=== PATIENT | female | born 1970 | race Caucasian/White ===

== ENCOUNTER 2023-06-04 15:58 | Outpatient (CLI) | payer OTHER, SELFPAY ==
--- NOTE | 2023-06-04 16:00 | CRLHL7_ITS ---
For Patients: As a result of the 21st Century Cures Act, medical imaging exams and procedure reports are released immediately into your electronic medical record. You may view this report before your referring provider. If you have questions, please contact your health care provider. INDICATION: LT facial spasm TECHNIQUE: CT of the temporal bones without contrast. Coronal and axial small field of view reconstructions of both temporal bones are included. COMPARISON: No prior studies are available for comparison at this institution. FINDINGS: RIGHT temporal bone: The external auditory canal is widely patent. No EAC stenosis or obstruction. The tympanic membranes are not thickened. The right middle ear is clear. No material is present within the sinus tympani. The ossicles are normal in appearance and location with no erosions or dislocation. The otic capsule is normal in appearance. No sclerosis within the labyrinthine canal. No fistula between the labyrinth and the middle ear. The vestibule and semicircular canals are normal in morphology with no evidence of semicircular canal dehiscence. Normal cochlear morphology with appropriate number of turns. Vestibular aqueduct is normal in size. Facial nerve canal is intact and normal in course/caliber. Petrous apex is normal. A few of the lateral mastoid air cells are opacified. The carotid canal and jugular foramen are normal. LEFT temporal bone: The external auditory canal is widely patent. No EAC stenosis or obstruction. The tympanic membranes are not thickened. The left middle ear is clear. No material is present within the sinus tympani. The ossicles are normal in appearance and location with no erosions or dislocation. The otic capsule is normal in appearance. No sclerosis within the labyrinthine canal. No fistula between the labyrinth and the middle ear. The vestibule and semicircular canals are normal in morphology with no evidence of semicircular canal dehiscence. Normal cochlear morphology with appropriate number of turns. Vestibular aqueduct is normal in size. Facial nerve canal is intact and normal in course/caliber. Petrous apex is normal. Mastoid air cells are clear. The carotid canal and jugular foramen are normal. OTHER: No fracture or significant degenerative change, lytic or blastic process is demonstrated in the skull base or temporomandibular joints. The imaged intracranial structures are normal in appearance. Orbits are normal. Imaged soft tissue structures are normal in appearance. Small mucous retention cysts in both maxillary sinuses measuring 1 cm or less. IMPRESSION: Unremarkable CT of the temporal bones. Minimal right mastoid effusion. Minimal bilateral maxillary sinus disease. Please note that all CT scans at this facility use dose modulation, iterative reconstruction, and/or weight-based dosing when appropriate to reduce radiation dose to as low as reasonably achievable. Dictated by Shan De Guzman MD @ 06/05/2023 12:03:19 PM (Electronically Signed)
== END 2023-06-04 15:59 | disposition home or self-care (01) ==
PROVIDERS: Visit Provider Otolaryngology
DX: G51.39 Clonic hemifacial spasm, unspecified (principal); J32.0 Chronic maxillary sinusitis
CPT/HCPCS: 70480

== ENCOUNTER 2024-05-20 11:28 | Outpatient (CLI) | payer OTHER, SELFPAY ==
--- OUTSIDE RECORDS SUMMARY | 2024-05-20 11:32 | XMS_ITS | Encounter Summary ---
Author Organization [facility] Address [address] [place] [id number] Care Team Providers Care Cook Fishing Vessel Name Role Phone Elsewhere, Pcp Primary Care Provider Unavailabl e Reason for Visit * Appointment Request (Routine) - Closed Specialty Diagnoses / Procedures Referred By Nicola shi Referred To Contact Neurology Referral ID Status Reason Start Date Expiration Date Visits Re quested Visits Authorized [id number] Closed 04/11/2024 04/11/2025 1 1 Encounter Details Date Type Department Care Team (Late st Contact Info) Description 05/17/2024 12:30 PM CDT Office Visit Department of Neurology in [place], [place] [address] [place] [address] Sania Cabrera M.B.B.S. [address] [place] [phone] Clonic Hemifacial Spasm Left (Primary Dx) Social History Tobacco Use Types Packs/Day Years Used Date Smoking Tobacco: Never Passive Smoke Exposure: Never Smokeless Tobacco: Never Tobacco Cessation:Counseling Given: Not Answered [facility] Utilities Answer Date Recorded In the past 12 months has [facility] [employer], gas, oil, or water [employer] threatened to shut off services in your home? No 05/16/2024 Humiliation, Afraid, Rape, and Kick questionnair e Answer Date Recorded Within the last year, have y ou been afraid of your partner or ex-partner? No 11/15/2021 Within the last year, have y ou been humiliated or emotionally abused in other ways by your partner or ex-partner? No Within the last year, have y ou been kicked, hit, slapped, or otherwise physically hurt by your partner or ex-partner? No 11/15/2021 Within the last year, have y ou been raped or forced to have any kind of sexual activity by your partner or ex-partner? No 11/15/2021 Social Connection and Isolat ion Panel [NHANES] Answer Date Recorded In a typical week, how many times do you talk on the phone with family, friends, or neighbors? More than three times a week 11/15/2021 How often do you get togethe r with friends or relatives? Patient declined 11/15/2021 How often do you attend chur or baptism services? 1 to 4 times per year 11/15/2021 Do you belong to any clubs o r organizations such as mormon groups, unions, fraReflex or athletic groups, or school groups? Yes 11/15/2021 How often do you attend meet ings of the clubs or organizations you belong to? More than 4 times per year 11/15/2021 Are you , , di vorced, , never , or living with a partner? 11/15/2021 AUDIT-C Answer Date Recorded Q1: How often do you have a drink containing alc ohol? Monthly or less 11/15/2021 Q2: How many drinks containi ng alcohol do you have on a typical day when you are drinking? 1 or 2 11/15/2021 Q3: How often do you have si x or more drinks on one occasion? Never 11/15/2021 Overall Financial Resource Strain (CARDIA) Answe r Date Recorded How hard is it for you to pa y for the very basics like food, housing, medical care, and heating? Not hard at all 11/15/2021 [facility] - Occupational Stress Questionnaire Answer Date Recorded Do you feel stress - tense, restless, nervous, or anxious, or unable to sleep at night because your mind is troubled all the time - these days? To some extent 11/15/2021 Exercise Vital Sign Answer Date Recorde d On average, how many days pe r week do you engage in moderate to strenuous exercise (like a brisk walk)? 5 days 05/16/2024 On average, how many minutes do you engage in exercise at this level? 30 min 05/16/2024 Hunger Vital Sign Answer Date Recorded Within the past 12 months, y ou worried that your food would run out before you got the money to buy more. Never true 05/16/20 24 Within the past 12 months, t he food you bought just didn't last and you didn't have money to get more. Never true 05/16/2024 PRAPARE - Transportation Answer Date Re corded In the past 12 months, has l ack of transportation kept you from medical appointments or from getting medications? No 04/19 In the past 12 months, has l ack of transportation kept you from meetings, work, or from getting things needed for daily living? No 05/16/2024 Nutrition Answer Date Recorded On average, how many serving s of fruits and vegetables do you eat per day (serving size is equal to 1 cup or approximately the size of a tennis ball)? 3-5 05/16/2024 Dental Answer Date Recorded Dental: Regular Dentist Yes 11/15/19 Employment Answer Date Recorded Employment status Employed and actively working without restrictions 05/16/2024 Housing Stability Answer Date Recorded What is your living situation today? I have a [facility] place to live 05/16/2024 Education Answer Date Recorded What is the highest level of school you have completed or the highest degree you have received? 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 - 05/17/2024 12:30 PM CDT SUBJECTIVE CHIEF COMPLAINT/REASON FOR VISIT Follow-up for hemifacial spasm HISTORY OF PRESENT ILLNESS Glensi Bach returns today for follow-up. Mrs. Bach is a very pleasant 53-year-old woman who presents today for a neurological evaluation for treatment refractory left clonic shamir facial spasm. I have previously evaluated [place]. She has left clonic shamir facial spasm. At our initial consultationthe symptoms were quite mild but over time they have progressed in severity to the point where theyinterrupt her sleep significantly, she gets frequent significant headaches from the muscle tightness, her vision and depth perception become impacted due to constant eye contraction, as a result she feels somewhat unsteady. She does have some clicking in her ear on that side. The symptoms do appearto consume her cognition and overall well-being due to the increasing symptom burden. She had a couple of rounds of botulinum toxin injections at [facility] in [place] but due to convenience has been doing them with a director [employer] locally. Last injection was done today, however since this does not kick in for 7-10 days, she is still at the trough of her dose. She gets no more than 30-40% improvement in the spasm with botulinum toxin. Recently she was prescribed hydroxyzine to help with sleep given that the spasm really interrupts her sleep. Also see my previous note evaluation of some transient symptoms she had, he will occasionally feel a weird sensation in her legs but there is really no persistent sensory motor abnormality. Of note no upper or lower limb deficits, bladder and bowel are normal, no dysphagia, no dysarthria,facial sensation is normal, voice and speech are normal. She has good hearing in the left ear but has had stable nonprogressive [id number] hearing loss in the right ear. OBJECTIVE PHYSICAL EXAMINATION I performed a complete neurological exam today. She does have typical left hemifacial spasm. This can appear periodic as is typical for the condition. There is some reactionary contraction of the right lower face that she does not notice, which is not a hemifacial spasm or a pathological movement rather a response to the left-sided contraction. This is not present at all times. Remaining cranial nerve, motor, sensory, cerebellar, gait evaluation was normal. Reflexes were within normal limits. ASSESSMENT / PLAN #1 Clonic left shamir facial spasm Mrs. 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 Unfortunately botulinum toxin therapy has failed provide her with optimal benefit and the spasm has progressed since I first saw her. It is significantly impacting her quality of life and causing several downstream impacts. She recently got a second opinion and was recommended a few medications. She certainly could trial those under the supervision of her primary care provider, however oral medications usually have minimal to no impact on hemifacial spasm and may be accompanied by systemic side effects. She is scheduled for an evaluation with Dr. Sue to discuss surgical interventions. Follow-up plan: I will not set up a scheduled follow-up. If a re-evaluation is needed, she can reach out. Total Time: 45 minutes PATIENT EDUCATION Ready to learn, no apparent learning barriers were identified; learning preferences include listening. Explained diagnosis and treatment plan; patient expressed understanding of the content. documented in this encounter Plan of Treatment Not on file documented as of this encounter Visit Diagnoses Diagnosis Clonic Hemifacial Spasm Left- Primary documented in this encounter Care Teams [employer]ishing [employer] Relationship Specialty Start Date End Date Elsewhere, Pcp PCP - General Internal Medicine 11/14/21 documented as of this encounter
--- OUTSIDE RECORDS SUMMARY | 2024-05-20 11:32 | XMS_ITS | Referral Summary ---
Author Organization [facility] Address [address] [place] [address] Care Team Providers Care Civil Engineering Professional Name Role Phone Elsewhere, Pcp Primary Care Provider Unavailabl e Source Comments Patient records contain information from all sites at [facility]. For routine questions regarding patient records, call [phone] during business hours, M-F 8:00 AM - 5:00 PM Central Time. Record requests for emergency care only can be directed to [phone] at any time.[facility] Encounters Date Type Department Care Team Description 05/17/2024 3:30 PM CDT Comprehensive Visit Department of Neurologic Surgery in [place], [place] [address] [place] [address] Roc Sue M.D. Clonic Hemifacial Spasm Left 05/17/2024 12:30 PM CDT Office Visit Department of Neurology in [place], [place] [address] [place] [address] Sania Cabrera M.B.BPastoraS. Clonic Hemifacial Spasm Left (Primary Dx) 05/10/2024 8:30 AM CDT Office Visit Department of Otorhinolaryngology in [place], [place] [address] [place] [address] Dexter Lyons P.A.-C., M.S. Loss Hearing Sensorineural Asymmetrical (Primary Dx) 05/02/2024 4:45 PM CDT Diagnostic Department of Otorhinolaryngology in [place], [place] [address] [place] [address] Boogie Plata Au.D. Sensorineural Hearing Loss Unilateral Right Ear With Unrestricted Hearing On The Contralateral Side (Primary Dx) from Last 3 Months Allergies Active Allergy Reactions Criticality Noted Date Comments Droperidol Other (see comments),Palpitations Medium tremors Pollen Extracts Itching 03/05/2015 Medications Medication Sig Dispensed Refills Start Date End Date Status multivitamin tablet Take 1 tablet by mouth daily. 03/05/2015 Active levothyroxine (SYNTHROID, LEVOTHROID) 50 mcg tablet Take 1 tablet by mouth daily. 06/20/2016 Active valACYclovir (VALTREX) 1000 mg tablet 07/16/2021 Active buPROPion XL (WELLBUTRIN XL) 300 mg 24 hr tablet Take 1 tablet by mouth daily. 07/29/2021 05/17/2024 Discontinued Hospital, Clinic, or Other Facility Administered Medication Ordered Dose Route Frequency Start Date End Date Status incobotulinumtoxinA injection 50 Units (XEOMIN)Indications:Clon ic Hemifacial Spasm Left 50 Units IM Every 12 weeks 08/14/2020 Active Active Problems Problem Noted Date Diagnosed Date Clonic Hemifacial Spasm Left 05/17/2024 Social History Tobacco Use Types Packs/Day Years Used Date Smoking Tobacco: Never Passive Smoke Exposure: Never Smokeless Tobacco: Never Tobacco Cessation:Counseling Given: Not Answered [facility] [employer] Answer Date Recorded In the past 12 months has [facility] [employer], gas, oil, or water [employer] threatened to shut off services in your [...] How often do you attend chur or confucianism services? 1 to 4 times per year 11/15/2021 Do you belong to any clubs o r organizations such as jewish groups, unions, fraternal or athletic groups, or school groups? Yes [...] and heating? Not hard at all 11/15/2021 [facility] Occupat ional Health - Occupational Stress [...] your living situation today? I have a [facility] place to live 05/16/2024 Education Answer Date Recorded What is the highest level of school you have completed or the highest degree you have received? 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 Gender Identity Female 08/08/2020 9:15 PM CDT Sexual Orientation Straight 08/08/2020 9: 15 PM CDT Last Filed Vital Signs Vital Sign Reading Time Taken Comments Blood Pressure 119/81 05/17/2024 12:19 PM CDT Pulse 91 05/17/2024 12:19 PM CDT Temperature - - Respiratory Rate - - Oxygen Saturation 100% 08/13/2020 7:50 AM CDT Inhaled Oxygen Concentration - - Weight 79.1 kg (174 lb 4.4 oz) 05/17/2024 12:19 PM CDT Height 164.9 cm (5' 4.92) 05/17/2024 12:19 PM C DT Body Mass Index 29.07 05/17/2024 12:19 PM CDT Plan of Treatment Not on file Procedures Procedure Name Priority Date/Time Associated Diagnosis Comments AUDIOLOGY EVALUATION 05/02/2024 12:00 AM CDT THYROID-STIMULATING HORMONE-SENSITIVE (S-TSH) Routine 09/25/2015 7:39 AM HEAVY FORGER GLUCOSE, FASTING, S/P Routine 03/05/2015 8:30 AM CDT from Last 3 Months or Most Recently Relevant to Health Maintenance Results * Audiology evaluation (05/02/2024 12:00 AM CDT) 05/02/2024 Boogie Garcia AUDIOLOGY SERVICES ORDERABLES * S-TSH (Thyroid-Stimulating Hormone - Sensitive) (09/25/2015 7:39 AM HEAVY FORGER) TSH, Sensitive 1.0 0.3 - 4.2 MIU/L [facility] 09/25/2015 7:39 AM HEAVY FORGER 09/25/2015 7:39 AM HEAVY FORGER Bernie Begum M.D. LAB BLOOD ADD-ON Performing Organization Address City/[facility]/ZIP Co de Phone Number [facility] [address] * Glucose, Fasting (03/05/2015 8:30 AM CDT) [facility] Int[facility] Glucose, P 87 70 - 100 MG/DL [facility] 03/05/2015 8:30 AM CDT 03/05/2015 8:30 AM CDT Bernie Begum M.D. LAB BLOOD NON ADD-ON [facility] [address] from Last 3 Months or Most Recently Relevant to Health Maintenance Care Teams Civil Engineering Professional Relationship Specialty Start Date End Date Elsewhere, Pcp PCP - General Internal Medicine 11/14/21
--- OUTSIDE RECORDS SUMMARY | 2024-05-20 11:32 | XMS_ITS | Encounter Summary ---
Author Organization [facility] Address [address] [place] [address] Care Team Providers Care Insurance Broker Name Role Phone Elsewhere, Pcp Primary Care Provider Unavailabl e Reason for Visit * Appointment Request (Routine) - Pending Review Specialty Diagnoses / Procedures Referred By Nicola shi Referred To Contact Otorhinolaryngology Referral ID Status Reason Start Date Expiration Date V isits Requested Visits Authorized [id number] Pending Review 04/28/2024 04/28/2025 1 1 Encounter Details Date Type Department Care Team (Latest Contact Info) Description 05/10/2024 8:30 AM CDT Office Visit Department of Otorhinolaryngology in [place], [place] [address] [place] [address] Dexter Lyons, P.A.-C., M.S. [address] [place] [address] Loss Hearing Sensorineural Asymmetrical (Primary Dx) Social History Tobacco Use Types Packs/Day Years Used Date Smoking Tobacco: Never Smokeless Tobacco: Never Humiliation, Afraid, Rape, and Kick questionnair e [...] How often do you attend chur or moravian services? 1 to 4 times per year 11/15/2021 Do you belong to any clubs o r organizations such as orthodox groups, unions, fraternal or athletic groups, or [...] and heating? Not hard at all 11/15/2021 [facility] - Occupational [...] to strenuous exercise (like a brisk walk)? 4 days 11/15/2021 On average, how many minutes do you engage in exercise at this level? 60 min 11/15/2021 Hunger Vital Sign Answer Date Recorded Within the past 12 months, y ou worried that your food would run out before you got the money to buy more. Never true 01/28/20 22 Within the past 12 months, t he food you bought just didn't last and you didn't have money to get more. Never true 11/15/2021 PRAPARE - Transportation Answer Date Re corded In the past 12 months, has l ack of transportation kept you from medical appointments or from getting medications? No 10/20 In the past 12 months, has l ack of transportation kept you from meetings, work, or from getting things needed for daily living? No 11/15/2021 Housing Stability Vital Sign Answer Arash e Recorded In the last 12 months, was t here a time when you were not able to pay the mortgage or rent on time? No 11/15/2021 In the last 12 months, how many places have you lived? 1 11/15/2021 In the last 12 months, was t here a time when you did not have a steady place to sleep or slept in a chcf (including now)? No 11/15/2021 Nutrition Answer Date Recorded Nutrition: EVOO Fat Source Yes 11/15 On average, how many serving s of fruits and vegetables do you eat per day (serving size is equal to 1 cup or approximately the size of a tennis ball)? 0-1 11/15/2021 Dental Answer Date Recorded Dental: Regular Dentist Yes 11/15/19 Employment Answer Date Recorded Employment status Employed and actively working without restrictions 11/15/2021 Education Answer Date Recorded What is the highest level of school you have completed or the highest degree you have received? Professional school degree (e.g., MD, DDS, DVM, RENETTA) 08/08/2020 Sex and Gender Information Value Date Recorded Sex Assigned at Female 11/15/2021 8:24 AM FISH BIN TENDER Gender Identity Female 08/08/2020 9:15 PM CDT Sexual Orientation Straight 08/08/2020 9: 15 PM CDT documented as of this encounter Progress Notes * Dexter Lyons, Baljinder.A.-C., M.S. - 05/10/2024 8:30 AM CDT SUBJECTIVE CHIEF COMPLAINT/REASON FOR VISIT: Return visit REFERRAL SOURCE No ref. provider found HISTORY OF PRESENT ILLNESS Glenis Bach is a very pleasant 53 y.o. female who returns for re-evaluation in ENT. The patient was most recently seen in 2021 regarding a history of right- sided sensorineural hearing loss. The patient was most recently seen on 12/09/2021 regarding history of right sensorineural hearing loss. We reviewed a previous MRI, which was negative for vestibular schwannoma. She presents today after an updated audiogram. Today, Ms. Bach returns to the ENT clinic reporting some possible worsening of her hearing. She has trouble localizing sound, especially in her large [place] home. In addition, she finds herself missing different things in conversation, especially when talking with her children. She has had a few events of self- limited, non-pulsatile tinnitus, but this has not present today. She denies ear pain and drainage. History is notable for very bothersome left-sided hemifacial spasm, in his contributes to a feelingof tension or fullness in the left face. She underwent workup with an outside ENT recently on the suspicion that she may have some underlying sinus disease, but this evaluation, including CT imaging of the sinuses was negative. An updated audiogram was completed last week, and revealed: Right: mild to moderate sensorineural hearing loss from 0.25-8 kHz. Left: normal hearing from 0.25-8 kHz Word recognition ability was assessed using recorded isophoneme stimuli and resulted in scores of 100% in each ear. Tympanometry revealed normal compliance and normal pressure bilaterally. Hearing is stable compared to her previous evaluation. REVIEW OF SYSTEMS Pertinent items are noted in History of Present Illness. All other Review of Systems were negative. CURRENT MEDICATIONS Reviewed and updated in the EMR. ALLERGIES/CONTRAINDICATIONS Reviewed and updated in the EMR. MEDICAL HISTORY Reviewed and updated in the EMR. SURGICAL HISTORY Reviewed and updated in the EMR. FAMILY HISTORY Reviewed and updated in the EMR. SOCIAL HISTORY Social History Tobacco Use Smoking status: Never Smokeless tobacco: Never Substance Use Topics Drug use: Never OBJECTIVE PHYSICAL EXAMINATION General: Awake, alert, and oriented times three. In no acute distress. Head: Normocephalic, atraumatic. Hair and scalp normal. Face: Symmetric. House-Brackmann 1/6 bilaterally. Sinuses nontender to palpation. Eyes: Pupils equal, round, and reactive to light bilaterally. Extraocular muscles are intact. No nystagmus is appreciated. The sclerae are without injection. Ears: Normal shaped pinna bilaterally. External auditory canals are clear. Tympanic membranes are intact with well-aerated middle ear spaces bilaterally; mild myringosclerosis noted bilaterally. Mastoid area is nontender, nonerythematous, and nonfluctuant bilaterally. Neurologic: Cranial Nerves 2 through 12 are grossly intact. Voice is strong and easily understandable, without dysphonia or vocal tremor. Pulmonary: Patient has nonlabored breathing. No audible stridor. Skin: [employer] and dry. Psychiatric: Appropriate mood and affect. ASSESSMENT / PLAN #1 Asymmetric Sensorineural Hearing Loss #2 Left Hemifacial Spasm PLAN: It was a pleasure to meet with Ms. Bach in the clinic today. She presents for ENT evaluation of hearing loss. An updated audiogram reveals stable, right worse than left, sensorineural hearing loss.We discussed the option of hearing aids, and she will consider this in the future, but is not currently see a need in her day-to-day life. She has had multiple MRI scans, primarily related to historyof left hemifacial spasm, which have been negative for retrocochlear pathology. Recommend repeat audiogram in three years, sooner if needed. Note, the patient is interested in pursuing surgery for the left hemifacial spasm. She reviewed this with a local neurosurgeon and colleague of Dr. Sue. I will reach out to Dr. Torres team to see whether or not she would be able to be seen or would need prerequisite testing/ consults. Questions were entertained to the best my ability. The patient will contact me with questions or concerns that arise in the future. The patient understands and agrees to the above care plan. documented in this encounter Plan of Treatment Not on file documented as of this encounter Visit Diagnoses Diagnosis Loss Hearing Sensorineural Asymmetrical- Primary documented in this encounter Care Teams Insurance Broker Relationship Specialty Start Date End Date Elsewhere, Pcp PCP - General Internal Medicine 11/14/21 documented as of this encounter
--- OUTSIDE RECORDS SUMMARY | 2024-05-20 11:32 | XMS_ITS | Encounter Summary ---
Author Organization [facility] Address [address] [place] [address] Care Team Providers Care Jeep Driver Name Role Phone Elsewhere, Pcp Primary Care Provider Unavailabl e Reason for Visit * Outpatient (Routine) - Closed Specialty Diagnoses / Procedures Referred By Nicola shi Referred To Contact Neurological Surgery Diagnoses Clonic Hemifacial Spasm Left Sania Cabrera M.B.B.S. [address] [place] [phone] [facility] Referral ID Status Reason Start Date Expiration Date Visits Re quested Visits Authorized [id number] Closed 04/11/2024 10/11/2025 1 1 Encounter Details Date Type Department Care Team (Latest Contact Info) Description 05/17/2024 3:30 PM CDT Comprehensive Visit Department of Neurologic Surgery in [place], [place] [address] [place] [phone] Roc Sue M.D. [address] [place] [phone] Clonic Hemifacial Spasm Left Social History Tobacco Use Types Packs/Day Years Used Date Smoking Tobacco: Never Passive Smoke Exposure: Never Smokeless Tobacco: Never [facility] Utilities Answer Date Recorded In the past 12 months has e electric, gas, oil, or water company threatened to shut off services in your [...] declined 11/15/2021 How often do you attend [facility] or muslim services? 1 to 4 times per year 11/15/2021 Do you belong to any clubs o r organizations such as latter-day groups, unions, fraternal or athletic groups, or [...] and heating? Not hard at all 11/15/2021 [facility] - Occupational Stress [...] your living situation today? [facility] live 05/16/2024 Education Answer Date Recorded What is the highest level of school you have completed or the highest degree you have received? Professional school degree (e.g., MD, DDS, DVM, RENETTA) 08/08/2020 Sex and Gender Information Value Date Recorded Sex Assigned at Female 11/15/2021 8:24 AM ONLINE MARKETING SPECIALIST Gender Identity Female 08/08/2020 9:15 PM CDT Sexual Orientation Straight 08/08/2020 9: 15 PM CDT documented as of this encounter Consult Notes * Dexter Harry M.D., Ph.D. - 05/17/2024 3:30 PM CDT Images from the original note were not included. Referring Provider: Juan Hilario Reason for Consultation: Left hemifacial spasm History Ms. Bach is a very pleasant right-handed 53-year-old female who lives in [place], [place]. She works as an claim attorney. She presents with 4 years of progressive left hemifacial spasm. Her symptoms began in fall 2019 with occasional twitching of her left eyelid which progressed into the cheek and, as of late, involving her left mouth. She endorses clicking in her left ear that has been presentsince her symptoms began but the clicking has been progressively getting worse. She does have a recent audiogram which demonstrates normal hearing in the left ear with 100% word recognition. She getsBotox injections for the left hemifacial spasm which she estimates getting 30-40% improvement from. She has not tried medication for the symptoms but has tried physical therapy and massage. The symptoms significantly affect the quality of her life. She notes difficulty falling asleep and staying asleep due to the intensity of the facial spasms and she avoids professional and social settings that may exacerbate her symptoms.Ms. Bach is overall quite healthy and just takes thyroid replacement. Her surgical history includes 3 sections and tonsillectomy as an adult without any major complications. She is not on blood thinning agents. Exam The patient is neurologically intact with frequent spasms throughout our interaction in the left face and which are exacerbated by facial activation. Diagnostics Assessment/Plan It was a pleasure meeting Ms. Bach for evaluation of left hemifacial spasm. 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 We discussed a 90+% chance of finding an offending vessel at the nerve root entry zone ofthe 7th nerve at surgery and a 75+% chance of long-term symptom relief if we do find such a vessel and decompress the nerve. We further discussed the 10% risk of permanent hearing impairment, 1-2% risk of permanent facial weakness, 1-2% risk of dysphonia/dysphagia/hoarseness, and 1% risk of stroke or hemorrhage. Overall our recommendation is to proceed with microvascular decompression through a re trosigmoid craniotomy. She will contact us to let us know how she would like to proceed once she's had a chance to think further about things. Associated attestation - Roc Sue M.D. - 05/17/2024 5:39 PM CDT Reviewed and agree with the documentation, findings, impression and plan as well outlined in the note of Dr. Harry. Briefly, Ms. Bach is a very pleasant 53-year-old right-handed claim attorney [place] intractable left hemifacial spasm. Her hemifacial spasm began in the Fall of 2019 involving the left orbicularis oculi. It has progressively spread to involve the left side of the face. She has primarily treated this with Botox. She never has hemifacial spasm of the right side of the face. She has no history of rash or vesicles on the face. She does hear a ???clicking?? noise in the left ear which has gotten progressively louder but she feels that she hears equally well out of both ears. Interestingly, it is particularly intense when she is trying to fall asleep at night. She denies a history of hypertension. Although she just received Botox this morning she still has moderate hemifacial spasm on exam. At time she gets complete blepharospasm. She also has a tonic component to her hemifacial spasm. Impression/plan: I discussed with Ms. Bach that her exam is entirely consistent with left hemifacial spasm. We discussed some of the pathophysiology. I reviewed with her in detail the goals, risks, benefits and alternatives of left retrosigmoid craniotomy and microvascular decompression of the left facial nerve. I discussed in overall 75% chance of long-term alleviation or near-complete resolution of left hemifacial spasm. I discussed a less than 10% risk of left-sided severe hearing loss and a 1-2% risk of bleeding, infection, stroke, permanent facial weakness, dysphagia, dysphonia, diplopia, etcetera. I reviewed the convalescence, follow-up in restrictions after such an operation. The patient expresses good understanding of our detailed discussion. Her questions were answered. She has our card. She isgoing to take all this under advisement and will contact us if she would like to proceed with retrosigmoid craniotomy and microvascular decompression of the left facial nerve for intractable left shamir facial spasm. documented in this encounter Plan of Treatment Not on file documented as of this encounter Visit Diagnoses Diagnosis Clonic Hemifacial Spasm Left documented in this encounter Care Teams Jeep Driver Relationship Specialty Start Date End Date Elsewhere, Pcp PCP - General Internal Medicine 11/14/21 documented as of this encounter
--- OUTSIDE RECORDS SUMMARY | 2024-05-20 11:32 | XMS_ITS ---
Author Organization [facility] Address [address] [place] [address] Care Team Providers Care Artificial Leather Calender Operator Name Role Phone Unavailable Unavailable Unavailable Surgery Details Not on file Complications Check Surgery Details section. Procedure Estimated Blood Loss Check Surgery Details section. Procedure Findings Check Surgery Details section. Procedure Specimens Taken Check Surgery Details section.
--- OUTSIDE RECORDS SUMMARY | 2024-05-20 11:32 | XMS_ITS | Clinical Summary ---
Author Organization [email or web address] Address [address] [place] [address] Care Team Providers Care Scrum Product Owner Name Role Phone Tatiana Gonzalez MD Primary Care Provider + [phone] Source Comments You are receiving this document as you are listed as the primary care provider,follow-up provider, or the patient has been referred to you for consultation.This is in compliance with the Medicare andMedicaid EHR Incentive Program,which states Providers who transition their patient to another setting of careor provider of care or refers their patient to another provider of care shouldprovide summary care record for each transition of care or referral. [employer] 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 Screened 11/2010 and TSH 1.9 Depressive disorder 07/20/2010 Overview: Depression NOS Urticaria 06/11/2010 Overview: Urticaria NOS Benign neoplasm of skin 07/24/2004 Overview: LW Modifier: s/p excision ANW 2003 left calf LW Onset: ; Dysplastic Nevus Immunizations Name Administration Dates Next Due Flu Vac Preserv Free (3+yrs) 07/20/2010 H1n1 Miv San[employer]i 3+ Yr (Injected) 08/31/2009 HepA Adult (19+ yrs) 11/25/2000 Td 08/24/2005,11/18/1994 Varicella 12/11/1997(Deferred: Immune by Maksim brown) Family History Medical History Relation Name Comments Heart Disease Father CABG High Blood Pressure Father High Cholesterol Father High Blood Pressure Mother Osteoporosis Mother High Cholesterol Brother Osteoporosis Maternal Grandmother Relation Name Status Comments Father Mother Brother Maternal Grandmother Social History Tobacco Use Types Packs/Day Years Used Date Smoking Tobacco: Never Smokeless Tobacco: Never Alcohol Use Standard Drinks/Week Comments Yes 0 (1 standard drink = 0.6 oz pure alcohol) Alcoholic Drinks/day: Amount:1-2 drinks; Freq:2-4/Month ; Sex and Gender Information Value Date Recorded Sex Assigned at Not on file Gender Identity Not on file Sexual Orientation Not on file Last Filed Vital Signs Vital Sign Reading Time Taken Comments Blood Pressure 115/64 12/23/2011 9:40 AM MANAGER PROJECT Pulse 69 12/23/2011 9:40 AM MANAGER PROJECT Temperature 36.7 ??C (98.1 ??F) 04/19/2010 2:28 PM CD T C: 36.7 C Respiratory Rate 16 06/11/2010 7:42 AM CDT Oxygen Saturation - - Inhaled Oxygen Concentration - - Weight 71.7 kg (158 lb) 03/26/2023 11:05 AM CDT Height 162.6 cm (5' 4) 03/26/2023 11:05 AM CDT Body Mass Index 27.12 03/26/2023 11:05 AM CDT Plan of Treatment Health Maintenance Due Date Last Done Comments Colon Cancer Screening Plan Due 1972 Hep C Screening (Preventive Services) 1972 HIV Screening (Preventive Services) 1988 Adult Preventive Visit 1990 HepB (1) 1991 HepA (2 of 2 - Risk 2-dose series) 05/25/2001 11/25/2000 Cervical Cancer Screening Due 01/04/2004 01/03/2004, 02/07/2003, 11/08/2001, Additional history exists Mammogram 12/11/2015 12/11/2014 Cholesterol 2017 12/23/2011, 02/2010, 11/25/2000 Zoster/Shingles (2 of 2) 10/07/2022 08/12/2022 COVID-19 Vaccine ( season) 2023 07/13/2022, 02/13/2022, 09/02/2021, Additional history exists Influenza (#1) 2024 07/13/2022, 06/19, 09/06/2019, Additional history exists DTaP/Tdap/Td (3 - Tdap) 10/03/2026 10/03/20 16, 03/26/2011, 08/24/2005, Additional history exists Hib Aged Out No longer eligi ble based on patient's age to complete this topic IPV (Polio) Aged Out No longer eligi ble based on patient's age to complete this topic MCV4 Aged Out No longer eligi ble based on patient's age to complete this topic Pneumococcal Aged Out No longer eligi ble based on patient's age to complete this topic Procedures Procedure Name Priority Date/Time Associated Diagnosis Comments MM MAMMOGRAM DIAG BILAT Routine 12/11/2014 10:42 AM MANAGER PROJECT LIPID PANEL & DIRECT LDL (IF NEEDED) Routine 12/23/2011 11:05 AM MANAGER PROJECT Other and unspecified hyperlipidemia (HRC) ANATOMICAL PATH LIQUID BASED Routine 01/03/2004 1:25 PM MANAGER PROJECT from Last 3 Months or Most Recently Relevant to Health Maintenance Results * Lipid Panel and Direct LDL(If Needed) (12/23/2011 11:05 AM MANAGER PROJECT) Cholesterol 173 0 - 200 mg/dL HP CONVERSION Triglycerides 48 0 - 149 mg/dL HP CONVERSION HDL Cholesterol 70 >39 mg/dL HP CONVERSION Cholesterol/HDL Ratio Screen 2.5 HP CONVERSION LDL Calculated 93 19 - 130 mg/dL HP CONVERSION Hours Fasting 12 HP CONVERSION 12/23/2011 11:0 5 AM MANAGER PROJECT 12/23/2011 11:05 AM MANAGER PROJECT Narrative HP CONVERSION - 12/23/2011 11:46 AM MANAGER PROJECT Performed at [facility], [address] [place] [address] Transcriptions 11/28/2016 7:59 PM CSTNotes Recorded by Yomaira Gaspar RN on 12/24/2011 at 3:52 PMWaiting for Antinuclear Antibody, rest ok to wait. Tatiana Gonzalez MD LAB_1 HP CONVERSION * Pap Smear (01/03/2004 1:25 PM MANAGER PROJECT) PAP Smear Liquid Based SEE TEXT No normal range HP CONVERSION Comment: Patient: GLENIS MART ? CERVICAL CYTOLOGY REPORT Pathology # ??[id number] ?Date Obtained: ? Date Received: CYTOLOGIC IMPRESSION: Negative for intraepithelial lesion or malignancy. ? ADDITIONAL DATA LMP: ?12-26-03 CLINICAL HIST ? HRT:ORTHO TRICYCLEN LIQUID BASED PAP CERVICAL SPECIMEN ADEQUACY: ?? Satisfactory. ENDOCERVICAL CELLS: ??Absent. Verified 01/10/04 by: ??MB ? (electronic signature) 01/03/2004 1:25 PM MANAGER PROJECT Zee Garay MD LAB_1 HP CONVERSION from Last 3 Months or Most Recently Relevant to Health Maintenance Care Teams Scrum Product Owner Relationship Specialty Start Date End Date Tatiana Gonzalez MD [address] [place], [place] [id number] PCP - General 01/19/11
--- OUTSIDE RECORDS SUMMARY | 2024-05-20 11:32 | XMS_ITS | Encounter Summary ---
Author Organization [facility] Address [address] [place] [address] Care Team Providers Care Adaptive Physical Education Specialist Name Role Phone Tatiana Gonzalez MD Primary Care Provider Encounter Details Date Type Department Care Team (Latest Contact Info) Description 03/01/1998 Orders Only Linda Jim MD [address] [address] Social History Tobacco Use Types Packs/Day Years Used Date Smoking Tobacco: Never Assessed Sex and Gender Information Value Date Recorded Sex Assigned at Not on file Gender Identity Not on file Sexual Orientation Not on file documented as of this encounter Plan of Treatment Not on file documented as of this encounter Visit Diagnoses Not on filedocumented in this encounter Care Teams Adaptive Physical Education Specialist Relationship Specialty Start Date End Date Tatiana Gonzalez MD [facility] [place] [address] PCP - General 01/19/11 documented as of this encounter
--- OUTSIDE RECORDS SUMMARY | 2024-05-20 11:32 | XMS_ITS | Referral Summary ---
Author Organization [facility] Address [address] [place] [address] Care Team Providers Care Relationship Specialist Name Role Phone Parul Muñoz MD Primary Care Provider Social History Tobacco Use Types Packs/Day Years Used Date Smoking Tobacco: Never Assessed Adolescent Education Answer Date Record ed Getting School Help Needed Not on file 07/10 Sex and Gender Information Value Date Recorded Sex Assigned at Not on file Gender Identity Not on file Sexual Orientation Not on file Plan of Treatment Not on file Care Teams Relationship Specialist Relationship Specialty Start Date End Date Parul Muñoz MD [address] [address] PCP - General cardiothoracic anesthesia technician 11/30/14
--- OUTSIDE RECORDS SUMMARY | 2024-05-20 11:32 | XMS_ITS | Encounter Summary ---
Author Organization [facility] Address [address] [place] [address] Care Team Providers Care Acid Plant Helper Name Role Phone Tatiana Gonzalez MD Primary Care Provider Encounter Details Date Type Department Care Team (Latest Contact Info) Description 02/23/1996 Orders Only Deborah Lu [facility] [address] [place] [address] Social History Tobacco Use Types Packs/Day Years Used Date Smoking Tobacco: Never Assessed Sex and Gender Information Value Date Recorded Sex Assigned at Not on file Gender Identity Not on file Sexual Orientation Not on file documented as of this encounter Plan of Treatment Not on file documented as of this encounter Visit Diagnoses Not on filedocumented in this encounter Care Teams Acid Plant Helper Relationship Specialty Start Date End Date Tatiana Gonzalez MD [address] [place] [address] PCP - General 01/19/11 documented as of this encounter
--- OUTSIDE RECORDS SUMMARY | 2024-05-20 11:32 | XMS_ITS | Clinical Summary ---
Author Organization [facility] Address [address] [place] [address] Care Team Providers Care Cpas Name Role Phone Elsewhere, Pcp Primary Care Provider Unavailabl e Source Comments Patient records contain information from all sites at [facility]. For routine questions regarding patient records, call [phone] during business hours, M-F 8:00 AM - 5:00 PM Central Time. 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 Clonic Hemifacial Spasm Left (Primary Dx) 05/10/2024 8:30 AM CDT Office Visit Department of Otorhinolaryngology in [place], [place] [address] [place] [address] Dexter Lyons P.A.-C., M.S. Loss Hearing Sensorineural Asymmetrical (Primary Dx) 05/02/2024 4:45 PM CDT Diagnostic Department of Otorhinolaryngology in [place], [place] [address] [place] [address] Boogie Plata Au.D. Sensorineural Hearing Loss Unilateral Right Ear With Unrestricted Hearing On The Contralateral Side (Primary Dx) from Last 3 Months Family History Medical History Relation Name Comments Hyperlipidemia Brother 1 Juan Gersaeid Hypertension Brother 1 Juan Bach starting in 40 s Sleep apnea Brother 1 Juan Gersaeid Sleep apnea Brother 2 Omar Gernon ADD Daughter 1 Roselia Yoder Asthma Daughter 1 Roselia Yoder ADD Daughter 2 Jose Yoder Coronary artery disease Father Zachary Bach qu adruple bypass at 74 Dementia Father Zachary Bach [facility] did autopsy b/c it presented as FTD; have report Hyperlipidemia Father Zachary Bach Hypertension Father Zachary Bach starting in 4 0s Melanoma Father Zachary Bach unknown date; removed and ok Prostate cancer Father Zachary Bach Skin cancer Father Zachary Bach unknown date; removed and ok Hyperlipidemia Mother Jeannie Bach Hypertension Mother Jeannie Bach starting in 40s Osteoporosis Mother Jeannie Bach Thyroid disease Mother Jeannie Bach Sleep apnea Paternal Grandfather Zachary Bach Stroke Paternal Grandfather Zachary Bach from it; around age 58 Breast cancer Paternal Grandmother Cara Bach pos t-menopause Sleep apnea Sister Bailey Bach Thyroid disease Sister Bailey Bach Asthma Son Chava Yoder Relation Name Status Comments Brother 1 Juan Gernon Brother 2 Omar Gernon Daughter 1 Roselia Yoder Daughter 2 Jose Yoder Father Zachary Bach Mother Jeannie Bach Paternal Grandfather Zachary Bach Paternal Grandmother Cara Bach Sister Bailey Bach Son Chava Yoder Social History Tobacco Use Types Packs/Day Years Used Date Smoking Tobacco: Never Passive Smoke Exposure: Never Smokeless Tobacco: Never Tobacco Cessation:Counseling Given: Not Answered [facility] Utilities Answer Date Recorded In the past 12 months has e [employer], gas, oil, or water company threatened to [...] declined 11/15/2021 How often do you attend [facility] or jewish services? 1 to 4 times per year 11/15/2021 Do you belong to any clubs o r organizations such as taoism groups, unions, fraternal or athletic groups, or [...] and heating? Not hard at all 11/15/2021 [facility] - Occupational Stress Questionnaire Answer Date Recorded [...] money to buy more. Never true 05/16/20 Within the past 12 months, t he [...] your living situation today? I have a [facility] place to live 05/16/2024 Education Answer Date Recorded What is the highest level of school you have completed or the highest degree you have received? Professional school degree (e.g., MD, DDS, DVM, RENETTA) 08/08/2020 Sex and Gender Information Value Date Recorded Sex Assigned at Female 11/15/2021 8:24 AM PROPOSAL REVIEW ANALYST Gender Identity Female 08/08/2020 9:15 PM CDT [...] 05/17/2024 12:19 PM CDT Plan of Treatment Health Maintenance Due Date Last Done Comments CT Colonography 1972 Cologuard 1972 FIT 1972 HIV Screening 1972 Hepatitis C Screening 1972 Hepatitis B Vaccines (1 of 3 - 19+ 3-dose series) 1991 Cervical Cancer Screening 01/17/20182014 (Performed elsewhere) Depression Screening (Annual PHQ-2) 10/19/2023 Influenza Vaccine (#1) 2024 , 07/13/2022, 06/28/2020, Additional history exists Fasting Glucose for Diabetes Screening 09/25/2024 09/25/2021, 03/13/2021, 11/22/2020, Additional history exists Thyroid Stimulating Hormone (TSH) test for thyroid function 11/19/2024 11/19/2023, 09/25/2021, 03/13/2021, Additional history exists Mammogram 11/20/2024 11/20/2023, 11/2023, 11/18/2022, Additional history exists Lipid (Cholesterol) Screening 11/22/2025 11/22/2020, 11/03/2018 DTaP,Tdap,and Td Vaccines (3 - Td or Tdap) 10/03/2026 10/03/2016, 03/26/2011, 08/24/2005 Colonoscopy 08/28/2032 08/28/2022 Colorectal Cancer Screening 08/28/2032 Zoster Vaccines Completed 07/15/2023, 08/12/2022 COVID-19 Vaccine Completed 07/21/2023, , 02/13/2022, Additional history exists Pneumococcal vaccine (0-64 years) Aged Out No longer eligible based on patient's age to complete this topic Procedures Procedure Name Priority Date/Time Associated Diagnosis Comments AUDIOLOGY EVALUATION 05/02/2024 12:00 AM CDT THYROID-STIMULATING HORMONE-SENSITIVE (S-TSH) Routine 09/25/2015 7:39 AM PROPOSAL REVIEW ANALYST GLUCOSE, FASTING, S/P Routine 03/05/2015 8:30 AM CDT from Last 3 Months or Most Recently Relevant to Health Maintenance Results * Audiology evaluation (05/02/2024 12:00 AM CDT) 05/02/2024 Boogie Garcia AUDIOLOGY SERVICES ORDERABLES * S-TSH (Thyroid-Stimulating Hormone - Sensitive) (09/25/2015 7:39 AM PROPOSAL REVIEW ANALYST) TSH, Sensitive 1.0 0.3 - 4.2 MIU/L [facility] 09/25/2015 7:39 AM PROPOSAL REVIEW ANALYST 09/25/2015 7:39 AM PROPOSAL REVIEW ANALYST Bernie Begum M.D. LAB BLOOD ADD-ON [facility] [address] [place] [address], [facility] * Glucose, Fasting (03/05/2015 8:30 AM CDT) Last Intake 14 HR [facility] Glucose, P 87 70 - 100 MG/DL [facility] 03/05/2015 8:30 AM CDT 03/05/2015 8:30 AM CDT Bernie Begum M.D. LAB BLOOD NON ADD-ON [facility] [address] [place] [address], [facility] from Last 3 Months or Most Recently Relevant to Health Maintenance Care Teams Cpas Relationship Specialty Start Date End Date Elsewhere, Pcp PCP - General Internal Medicine 11/14/21
--- OUTSIDE RECORDS SUMMARY | 2024-05-20 11:32 | XMS_ITS | Encounter Summary ---
Author Organization [facility] Address [address] [place] [address] Care Team Providers Care Environmental Compliance Specialist Name Role Phone Elsewhere, Pcp Primary Care Provider Unavailabl e Reason for Visit * Appointment Request (Routine) - Closed Specialty Diagnoses / Procedures Referred By Nicola shi Referred To Contact Otorhinolaryngology Diagnoses Hearing Exam Referral ID Status Reason Start Date Expiration Date Visits Re quested Visits Authorized [id number] Closed 04/26/2024 04/26/2025 1 1 Encounter Details Date Type Department Care Team (Latest Contact Info) Description 05/02/2024 4:45 PM CDT Diagnostic Department of Otorhinolaryngology in [place], [place] [address] [place] [address] Boogie Plata Au.D. [address] [place] [address] Sensorineural Hearing Loss Unilateral Right Ear With Unrestricted Hearing On The Contralateral Side (Primary Dx) Social History Tobacco Use Types [...] 11/15/2021 How often do you attend chur ch or oriental orthodox services? 1 to 4 times per year 11/15/2021 Do you belong to any clubs o r organizations such as jew groups, unions, fraternal or athletic groups, or [...] and heating? Not hard at all 11/15/2021 [facility] - Occupational Stress [...] the money to buy more. Never true 11/15/19 22 Within the past 12 months, t [...] place to sleep or slept in a residential (including now)? No 11/15/2021 Nutrition Answer Date [...] Sex Assigned at Female 11/15/2021 8:24 AM FOREST AIDE Gender Identity Female 08/08/2020 9:15 PM CDT Sexual Orientation Straight 08/08/2020 9: 15 PM CDT documented as of this encounter Procedure Notes * Boogie Plata Au.D. - 05/02/2024 4:59 PM CDT SUBJECTIVE CHIEF COMPLAINT / REASON FOR VISIT ?? Asymmetric hearing loss, right greater than left. ?? Left hemifacial spasms HISTORY OF PRESENT COMPLAINT Mrs. Glenis Bach is a 53 year old patient with a history of right greater than left sensorineural hearing loss as well as progressively worsening left facial spasms for which she is considering surgical intervention. She feels the hearing in her right ear has probably worsened since her last visit in 2021. She also notes a constant pulsatile sensation in her left ear since around 2019. This is significantly worse when she is lying down. Family history is significant for hearing concerns on her mother side, including her mother, sister, and several aunts, uncles, and cousins who developed hearing loss at an early age. She denies any familial or personal ear surgery. OBJECTIVE See Audiological Evaluation Form. ASSESSMENT/PLAN ?? Right: mild to moderate sensorineural hearing loss from 0.25-8 kHz. ?? Left: normal hearing from 0.25-8 kHz ?? Word recognition ability was assessed using recorded isophoneme stimuli and resulted in scores of 100% in each ear. ?? Tympanometry revealed normal compliance and normal pressure bilaterally. ?? Hearing is stable compared to her previous evaluation. CARE PLAN ?? Test results were explained to the patient. ?? She is not interested in a right hearing aid at this time but was made aware this may be an option for her. ?? Re-evaluate hearing after medical management, or in 2-3 years, sooner if concerns arise. documented in this encounter Plan of Treatment Not on file documented as of this encounter Procedures Procedure Name Priority Date/Time Associated Diagnosis Comments AUDIOLOGY EVALUATION 05/02/2024 12:00 AM CDT documented in this encounter Results * Audiology evaluation (05/02/2024 12:00 AM CDT) 05/02/2024 Boogie Garcia AUDIOLOGY SERVICES ORDERABLES documented in this encounter Visit Diagnoses Diagnosis Sensorineural Hearing Loss Unilateral Right Ear With Unrestricted Hearing On The Contralateral Side- Primary documented in this encounter Care Teams Environmental Compliance Specialist Relationship Specialty Start Date End Date Elsewhere, Pcp PCP - General Internal Medicine 11/14/21 documented as of this encounter
--- OUTSIDE RECORDS SUMMARY | 2024-05-20 11:32 | XMS_ITS | Clinical Summary ---
Author Organization [place] Address [address] [place] [address] Care Team Providers Care Shoe Repairer Helper Name Role Phone Parul Muñoz MD Primary [...] of Treatment Not on file Care Teams Shoe Repairer Helper Relationship Specialty Start Date End Date Parul Muñoz MD [address] [address] PCP - General field superintendent 11/30/14
--- OUTSIDE RECORDS SUMMARY | 2024-05-20 11:33 | XMS_ITS | Clinical Summary ---
Author Organization [facility] Address [place], [place] [address] Care Team Providers Care Emt I/99 Name Role Phone Luis FKarmen van Soumya Primary Care Provider [phone] Allergies Active Allergy Reactions Criticality Noted Date Comments Droperidol Tremors,Tachycardia Medium 03/24/2011 Pollen Extracts Itching 03/05/2015 Propranolol Other - Describe In Comment Field 0 03/26/2023 dystonia Medications Medication Sig Dispensed Refills Start Date End Date Status multivitamin (MVI) tablet Take 1 tablet by mouth once daily. 0 4 Active valACYclovir (VALTREX) 1 gram tabletIndications: Recurrent cold sores Take 1 tablet by mouth 2 times daily. As needed for cold sore. 30 tablet 3 9 Active incobotulinumtoxin A (XEOMIN) 50 unit IM injection Inject 50 units intramuscular every 12 weeks. 0 Active miscellaneous medical supply miscIndications:Barksdale shimoto's disease Levothyroxine t3 17/t4 68once daily 90 Each 2 Active hydrOXYzine HCL (ATARAX) 25 mg tablet 4 Active levothyroxine (SYNTHROID) 75 mcg tabletIndications: Carl's disease Take 1 Tablet (75 mcg) by mouth before breakfast. 4 Active dextroamphetamine- amphetamine (ADDERALL) 5 mg tabletIndications: Attention deficit hyperactivity disorder (ADHD), combined type TAKE 2 TABS (10MG) IN THE MORNING AND 1 TAB (5MG) AT 12:00 NOON 90 Tablet 4 Active dextroamphetamine- amphetamine (ADDERALL) 5 mg tabletIndications: Attention deficit hyperactivity disorder (ADHD), combined type TAKE 2 TABS (10MG) IN THE MORNING AND 1 TAB (5MG) AT 12:00 NOON 90 Tablet 4 05/10/20 24 Discontinued Active Problems Problem Noted Date Diagnosed Date Hemifacial spasm of left side of face 11/22/2020 Performance anxiety 11/03/2018 Recurrent cold sores 11/03/2018 ADD (attention deficit disorder) 08/27/2016 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 Vitamin D deficiency 03/14/2014 Reflux 12/28/2013 Overview: EGD 01/2014 normal Resolved Problems Problem Noted Date Diagnosed Date Resolved Date section 03/25/2011 12/14/2015 History of section, low transverse 05/14/2009 12/14/2015 Encounters Date Type Department Care Team Description 05/11/2024 11:20 AM CDT Telemedicine [facility] [address] [place] [address] Aung Alcantar MD Telehealth 05/10/2024 Refill [facility] [address] [place] [address] Karmen Stiles DO Refill Request (Dextroamphetamine-am phetamine) from Last 3 Months Immunizations Name Administration Dates Next Due AMB Influenza, IIV4 PF (=>6 mos Flulaval,Fluzone Fluarix)(Flu Clinic Only) 09/22/2014 COVID-19 Vaccine Spikevax (M oderna 50mcg/0.5mL) 12YO+ [id number] Formula PF 07/21/2023 COVID-19 vaccine (Moderna 100mcg/0.5mL) PF, MDV 09/02/2021,02/12/2021,01/15/2021 Hepatitis A (Adult) 11/25/2000 Hepatitis A (Peds),Unspecified 11/25/2000 Influenza A (H1N1), Inactivated 08/31/2009 Influenza Virus, Unspecified 07/20/2010 Influenza, IIV3 (Age >=3 years) 07/27/20 12,06/19/2010,09/02/2007,2004 Influenza, IIV4 06/28/2020, 9,08/02/2018,2016,09/22/2014 Influenza,CCIIV4 PRESERV FREE 07/15/2023, 022 Td (Age >=7 Years) 08/24/2005,11/18/1994 Td, Preservative Free (age > = 7 Years) 10/03/2016 Tdap 03/26/2011 Zoster (Shingrix-RZV, recombinant) 07/15/2023, Family History Medical History Relation Name Comments Hypertension Brother Cancer-prostate Father Dementia Father Heart Disease Father tobacco use, o verweight Hypertension Father Thyroid Disease Maternal Aunt Hypertension Mother Osteoporosis Mother Cancer-breast Paternal Grandmother Thyroid Disease Sister Cancer-ovarian No Family History Relation Name Status Comments Brother Father Maternal Aunt Mother Alive Paternal Grandmother Sister Social History Tobacco Use Types Packs/Day Years Used Date Smoking Tobacco: Never Smokeless Tobacco: Never Tobacco Cessation:Counseling Given: Yes Alcohol Use Standard Drinks/Week Comments Yes 0 (1 standard drink = 0.6 oz pure alcohol) Once a month, 1-2 drinks at a time PHQ-2 Answer Date Recorded PHQ-2 TOTAL SCORE 4 11/19/2023 Social Connections Answer Date Recorded Frequency of Communication with Friends and Fami ly Not on file 05/17/2024 Financial Resource Strain Answer Date R ecorded Difficulty of Paying Living Expenses 3 05/15/2023 Difficulty of Paying Living Expenses Not on file 05/15/2023 Food Insecurity Answer Date Recorded Worried About Running Out of Food in the Last Ye ar 1 05/15/2023 Transportation Needs Answer Date Record ed Lack of Transportation (Medical) 1 05/15/2023 Housing Stability Answer Date Recorded Unable to Pay for Housing in the Last Year 1 05/15/2023 Sex and Gender Information Value Date Recorded Sex Assigned at Not on file Gender Identity Not on file Sexual Orientation Not on file Obstetrics History Para Term AB IAB SAB Ectopic Multiple Livin g Live Births 4 4 4 0 0 0 0 0 0 4 2 Date Outcome GA Total Labor Labor/2nd/3rd Weight Sex Type Anes PTL Rosalva A1 A5 Name Clin 2004 Term 40w 5d 3.88 kg (8 lb 9 oz) F VAGINA L VACU Livin g Jose Eleusebiot rand Delivery Location:[facility] Comments:4th degree te ar healed well 2006 Term 39w 0d M C-Sect ion Comments:hemorrage 2008 Term 39w 0d 3.74 kg (8 lb 4 oz) F C-Sect ion Delivery Location:[facility] 2010 Term 39w 0d F C-Sect ion Livin g BG MARTHA Delivery Location:[facility] Last Filed Vital Signs Vital Sign Reading Time Taken Comments Blood Pressure 124/72 11/19/2023 1:08 PM PROCESSING SPECIALIST Pulse 82 11/19/2023 1:08 PM PROCESSING SPECIALIST Temperature 36.6 ??C (97.9 ??F) 08/26/2019 9:21 AM CS T Respiratory Rate 16 05/15/2023 3:21 PM CDT Oxygen Saturation 100% 11/19/2023 1:08 PM PROCESSING SPECIALIST Inhaled Oxygen Concentration - - Weight 77.1 kg (170 lb) 11/19/2023 1:08 PM PROCESSING SPECIALIST Height 165.1 cm (5' 5) 11/19/2023 1:08 PM PROCESSING SPECIALIST Body Mass Index 28.29 11/19/2023 1:08 PM PROCESSING SPECIALIST Plan of Treatment Health Maintenance Due Date Last Done Comments HIV for age 15-65 1987 Hepatitis C screening for age 18-79 1990 Pap test for age 21-65 11/03/2023 9, 11/03/2018, 07/19/2016 ([facility]) Influenza for age 50-64 06/19/2024 07/15/20 23, 07/13/2022, 06/28/2020, Additional history exists BMI (ht and wt on same day) for age 18+ 11/19/2024 11/19/2023, 05/15/2023, 12/12/2021, Additional history exists Depression screening for age 12+ 11/19/2024 11/19/2023, 05/15/2023, 07/17/2022, Additional history exists Mammogram for age 45-75 11/20/2024 11/20/19 24, 11/18/2022, 10/17/2021, Additional history exists Lipids for age 45-75 11/22/2025 11/22/2020, 11/03/19 19 Tetanus booster 10/03/2026 10/03/2016, 05/2011, 08/24/2005, Additional history exists Colonoscopy through age 75 08/28/203208/28, 08/28/2022, 08/28/2022 Tdap Completed 03/26/2011 Zoster (shingles) series for age 50+ Completed 07/15/2023, 08/12/2022 COVID-19 vaccine series Completed 07/21/20, 07/13/2022, 02/13/2022, Additional history exists Pneumococcal series for age 6-64 Aged Out No longer eligible based on patient's age to complete this topic Procedures Procedure Name Priority Date/Time Associated Diagnosis Comments XR MAMMO ERNA BILAT SCREEN Routine 11/20/2023 11:15 AM PROCESSING SPECIALIST Visit for screening mammogram COLONOSCOPY SCREENING Routine 08/28/2022 8:47 AM PROCESSING SPECIALIST Colon cancer screening LIPID PANEL Routine 11/22/2020 12:04 PM PROCESSING SPECIALIST Routine general medical examination at a [facility] facility MEDICARE COORDINATOR THIN PREP PAP SCREEN IMAGED Routine 11/03/2018 10:05 AM PROCESSING SPECIALIST Pap smear for cervical cancer screening from Last 3 Months or Most Recently Relevant to Health Maintenance Results * XR MAMMO ERNA BILAT SCREEN (11/20/2023 11:15 AM PROCESSING SPECIALIST) Anatomical Region Laterality Modality BREASTS, Breast Left, Breast Right Bilateral Mammography Impressions 11/20/2023 3:48 PM PROCESSING SPECIALIST ??There is no radiographic evidence for malignancy. ??Recommend annual mammograms. MAMMOGRAM ASSESSMENT: ??ACR 1 Negative PATIENTS: You will also receive a letter with your examination results in an easy to read format. ??If you have questions about your results, please contact your referring provider. Narrative 11/20/2023 3:48 PM PROCESSING SPECIALIST For Patients: As a result of the Century Cures Act, medical imaging exams and procedure reports are released immediately into your electronic medical record. You may view this report before your referring provider. If you have questions, please contact your health care provider. XR MAMMO ERNA BILAT SCREEN [[id number]] CLINICAL HISTORY: ??This is an asymptomatic 53 y.o. patient. INDICATION FOR EXAM: Mammogram Screening. TECHNIQUE: CC & MLO views were obtained. ??This study was evaluated with the assistance of Computer-Aided Detection. Breast Tomosynthesis was used in interpretation. COMPARISON FILM: Yes 11/18/22 [facility] 10/17/21 [facility] FINDINGS: ??The breasts are extremely dense, which lowers the sensitivity of mammography. There are no dominant masses, suspicious micro calcifications or areas of architectural distortion. Karmen Stiles DO MAMMO * COLONOSCOPY (08/28/2022 8:43 AM PROCESSING SPECIALIST) 08/28/2022 8:43 AM PROCESSING SPECIALIST Narrative Transcriptions Karlos Curran MD - 08/28/2022 9:30 AM CST Patient Name: Glenis Bach Procedure Date: 08/28/2022 Gender: Female Date of : 1970 Admit Type: Outpatient Procedure: Colonoscopy Proceduralist: Karlos Curran MD , Yarely Bradley, RN(Nurse), Mackenzie Durham (Nurse) Referring MD: Karmen Stiles Indications/Pre-Op Diagnosis: Screening for colorectal malignant neoplasm, This is the patient's first colonoscopy Medications: Fentanyl 100 micrograms IV, Midazolam 3 mgIV, The level of sedation administered wasmoderate Procedure Description: The patient had risks, benefits and alternatives explained to andgave informed consent. The patient had a stable cardiopulmonary status and judged an adequate candidate for conscious sedation. The endoscope [id number]-[id number] [id number] was passed through the anus andadvanced to the cecum, identified by appendiceal orifice and ileocecal valve.The colonoscopy was performed without difficulty. The patient toleratedthe procedure well. The quality of the bowel preparation was good. The ileocecal valve, appendiceal orifice, and rectum were photographed. Complications: No immediate complications. Estimated Blood Loss & Specimen: Estimated blood loss: none. Specimen collected - None Findings: The perianal and digital rectal examinations were normal. The entire examined colon appeared normal on direct and retroflexion views. Impressions/Post-Op Diagnosis: - The entire examined colon is normal on direct and retroflexionviews. - No specimens collected. Recommendation: - Patient has a contact number available for emergencies. The signsand symptoms of potential delayed complications were discussed with the patient. Return to normal activities tomorrow. Written discharge instructions were provided to the patient. - Resume previous diet. - Continue present medications. - Repeat colonoscopy in 10 years for screening purposes. Moderate Sedation: A time out was performed before the procedure. Moderate (conscious) sedation was administered by the endoscopy nurse and supervised bythe endoscopist. The following parameters were monitored: oxygensaturation, heart rate, blood pressure, EKG, CO2, respiratory rate, adequacy of pulmonary ventilation and reponse to care. Please refer to the patient's medical record flowsheets and nursing notes for moderate sedation details. Total physician intraservice time was 15 minutes. Karlos Curran MD 08/28/2022 9:30:26 AM This report has been signed electronically. Note Initiated On: 08/28/2022 8:43 AM Procedure Code(s): --- Professional --- 15510, Colonoscopy, flexible; diagnostic, including collection of specimen(s) bybrushing or washing, when performed (separateprocedure) Diagnosis Code(s): --- Professional --- Z12.11, Encounter for screening formalignant neoplasm of colon CPT copyright 2020 [employer]. All rights reserved. The codes documented in this report are preliminary and upon scrap separator reviewmay be revised to meet current compliance requirements. Scope In: 9:12:37 AM Scope Withdrawal Time 0 hours 9 minutes 13 seconds Scope Out: 9:26:48 AM Karlos Curran MD PROCEDURE ORD * (ABNORMAL) LIPID PANEL (11/22/2020 12:04 PM PROCESSING SPECIALIST) CHOLESTEROL,TOTAL 229(H) 100 - 199 mg/dL 11/22/2020 5:58 PM PROCESSING SPECIALIST [facility] TRIGLYCERIDES 72 <150 mg/dL 11/22/2020 5:58 PM PROCESSING SPECIALIST [facility] HDL CHOLESTEROL 74 >40 mg/dL 5:58 PM PROCESSING SPECIALIST [facility] NON-HDL CHOLESTEROL 155(H) <145 mg/dl 11/22/2020 5:58 PM PROCESSING SPECIALIST [facility] CHOL/HDL RATIO 3.09 <4.50 11/22/2020 5:58 PM PROCESSING SPECIALIST [facility] LDL CHOLESTEROL 141(H) <=130 mg/dL 11/22/2020 5:58 PM PROCESSING SPECIALIST [facility] PROVIDER ORDERED STATUS RANDOM 11/22/2020 5:58 PM PROCESSING SPECIALIST [facility] Blood BLOOD SPECIMEN / Unknown Venipuncture / Unknown 11/22/2020 12:04 PM PROCESSING SPECIALIST 11/22/2020 12:04 PM PROCESSING SPECIALIST Karmen Stiles DO CHEMISTRY [facility] [address] [place] [address], * MEDICARE COORDINATOR THIN PREP PAP SCREEN IMAGED (11/03/2018 10:05 AM PROCESSING SPECIALIST) Case Report Gynecologic Cytology Report ? Case: [id number] ? Authorizing Provider: ??Becca Laura MD Collected: ? 11/03/2018 1005 ? Ordering Location: ? [facility] ?? Received: ?11/03/2018 1130 ? Clinic ? First Screen: ?Angel Monet ? Specimen: ?MEDICARE COORDINATOR ThinPrep Vial Screening, Cervical ? 11/11/2018 11:14 AM [facility] INTERPRETATION/ RESULT NEGATIVE FOR INTRAEPITHELIAL LESION OR MALIGNANCY (NIL) (none) 11/11/2018 11:14 AM [facility] IMEN ADEQUACY Satisfactory for evaluation No endocervical component seen 11/11/2018 11:14 AM [facility] HPV REQUEST HPV and PAP 11/11/2018 11:14 AM [facility] Date of LMP 10/11/2018 11/11/2018 11:14 AM [facility] Last Pap Date 07/201611/11/2018 11:14 AM PROCESSING SPECIALIST [facility] Last Pap Result NIL 11:14 AM PROCESSING SPECIALIST [facility] Abnormal Pap or Olivet Bx in last 5 years No 11/11/2018 11:14 AM [facility] Menstrual Status Regular Periods 11/11/2018 11:14 AM PROCESSING SPECIALIST [facility] Olivet Bx Done Today No 11/11/2018 11:14 AM PROCESSING SPECIALIST [facility] Additional Information None given 11/11/2018 11:14 AM [facility] Automated Review Successful 11/11/2018 11:14 AM [facility] Comment:Specimen processed s uccessfully by automated indoor landscape architect device, ThinPrep Imaging System, [employer] ANCILLARY TESTING MEDICARE COORDINATOR HPV Ordered, Please see separate report 11/11/2018 11:14 AM [facility] Note The pap test is a screening technique, not a diagnostic procedure. ??It is used primarily to screen for squamous cancers and precursor lesions. ??Published studies have shown that it is subject to both false negative and false positive results. ??The pap test should not be used as the sole means to diagnose or exclude pre-malignant and malignant lesions. Cytology is screened and interpreted at [facility] - [address], [place] [address] and [facility] - [address]; [place] [address] and [facility] - [address]; [place] [address] and [facility] [address]; [place] [address] 11/11/2018 11:14 AM PROCESSING SPECIALIST [facility] Other (Cervical) Non-Blood / Unknown 11/03/2018 10:05 AM PROCESSING SPECIALIST 11/03/2018 11:30 AM PROCESSING SPECIALIST Becca Laura MD PATHOLOGY/CYTOL OGY [facility] [address] [place] [address], [place] from Last 3 Months or Most Recently Relevant to Health Maintenance Advance Directives * Full Code (Latest Code Status on File) Date Activated Date Inactivated Comments 03/24/2011 11:21 AM 03/27/2011 1:17 PM * Full Code Date Activated Date Inactivated Comments 03/24/2011 7:35 AM 03/24/2011 10:23 AM * Full Code Date Activated Date Inactivated Comments 05/14/2009 11:21 AM 05/17/2009 1:32 PM * Full Code Date Activated Date Inactivated Comments 05/14/2009 7:25 AM 05/14/2009 10:56 AM * Full Code Date Activated Date Inactivated Comments 03/07/2009 10:42 PM 03/07/2009 11:35 PM Care Teams Emt I/99 Relationship Specialty Start Date End Date Karmen Stiles DO [address] [place] [address] PCP - General Family Practice 11/22/20
== END 2024-05-20 11:29 | disposition home or self-care (01) ==
PROVIDERS: Visit Provider Obstetrics & Gynecology
DX: N95.1 Menopausal and female climacteric states (principal); E06.3 Autoimmune thyroiditis; F41.8 Other specified anxiety disorders
CPT/HCPCS: 84270; 84402; 84403; 84443

== ENCOUNTER 2025-06-12 19:55 | Emergency (ER) | payer SELFPAY ==
--- OUTSIDE RECORDS SUMMARY | 2025-06-12 19:58 | XMS_ITS | Clinical Summary ---
Author Organization [facility] Address [address] [place] [address] Care Team Providers Care Internet Manager Name Role Phone Parul Muñoz MD Primary Care Provider Social History Tobacco Use Types Packs/Day Years Used Date Smoking Tobacco: Never Assessed Adolescent Education Answer Date Record ed Getting School Help Needed Not on file 07/10 Comments Unknown Sex and Gender Information Value Date Recorded Sex Assigned at Not on file Legal Sex Female 5:18 AM CHILD CARE CENTRE DIRECTOR Gender Identity Not on file Sexual Orientation Not on file Plan of Treatment Not on file [place] [address] Care Teams Internet Manager Relationship Specialty Start Date End Date Parul Muñoz MD [address] [place] [phone] PCP - General automobile relocation engineer 11/30/14
--- OUTSIDE RECORDS SUMMARY | 2025-06-12 19:58 | XMS_ITS | Continuity of Care Document ---
Author Name 2ND.MD Wilfredo Address [address] [place] [address] [place] [address] Organization Unknown Address [address] [place] [address] [place] [id number] Medications No known medications Problems No known problems
--- OUTSIDE RECORDS SUMMARY | 2025-06-12 19:58 | XMS_ITS | Encounter Summary ---
Author Organization [facility] Address [address] [place] [address] Encounters * Virtual Check-in with 2ND.MD Villalobos at [employer] on [id number] member completed a virtual educational consultation with a specialist to discuss the following: Nervous System - Neuromuscular Disorders - Hemifacial Spasm Written by 2ND.MD Villalobos on 2025-01-07
--- OUTSIDE RECORDS SUMMARY | 2025-06-12 19:58 | XMS_ITS | Clinical Summary ---
Author Organization [facility] Address [address] [place] [id number] Care Team Providers Care Book Coverer Name Role Phone Elsewhere, Pcp Primary Care Provider Unavailabl e Source Comments Patient records contain information from all sites at [facility]. For routine questions regarding patient records, call [phone] during business hours, M-F 8:00 AM - 5:00 PM Central Time. Record requests for emergency care only can be directed to [phone] at any time.[facility] Allergies Active Allergy Reactions Criticality Noted Date Comments Cat Dander Other (see comments) 02/01/2025 Droperidol Other (see comments),Palpitations High 03/24/2011 tremors droperidol Grass Pollen Other (see comments) 02/01/2025 House Dust Mite Other (see comments) 02/01/2025 Pollen Extracts Itching 03/05/2015 Ragweed Pollen Other (see comments) 02/01/2025 Medications * This document contains information received from the source organization and may not represent a complete record from that organization. multivitamin tablet Take 1 tablet by mouth daily. 5 Active valACYclovir (VALTREX) 1000 mg tablet Take 1,000 mg by mouth as needed (cold sore). 1 Active levothyroxine 75 mcg tablet Take one tablet by mouth daily before breakfast. 4 Active dextroamphetami ne-amphetamine (AdderalL) 5 mg tablet TAKE 2 TABS (10MG) IN THE MORNING AND 1 TAB (5MG) AT 12:00 NOON 4 Active cholecalciferol (Vitamin D3) 125 mcg (5,000 Unit) capsule Take 125 mcg by mouth daily. Active estradioL (Estrace) 0.1 mg/g (0.01%) vaginal cream INSERT 0.5 G VAGINALLY NIGHTLY FOR 2 WEEKS, THEN TWICE WEEKLY. MAY APPLY WITH FINGER. Strength: 0.01 % (0.1 mg/gram) 4 Active estradioL (Vivelle-Dot) 0.05 mg/24 hr patch APPLY 1 PATCH FOR 3 DAYS ALTERNATING WITH 1 PATCH FOR 4 DAYS EACH WEEK FOR 3 WKS PER 4-WK CYCLE 4 Active progesterone (Prometrium) 100 mg capsule Take 1 capsule (100 mg total) by mouth at bedtime. 4 Active Additional Information Patient taking differently: 200 mgoral Daily at bedtime, Reported on 02/01/2025 Prometrium 200 mg capsule Take 1 capsule every day by oral route at bedtime for 30 days. 5 Active gabapentin (Neurontin) 300 mg capsule Take 300 mg by mouth 3 (three) times a day. 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 08/27/2016 Depressive Disorder 07/20/2010 Overview (05/24/2024): Depression NOS Hypothyroidism 04/01/2007 Resolved Problems Problem Noted Date Diagnosed Date Resolved Date Gastroesophageal Reflux Disease 12/28/2013 07/25/2024 Overview (05/24/2024): EGD 01/2014 normal Family History Medical History Relation Name Comments Hyperlipidemia Brother 1 Juan Bach Hypertension Brother 1 Juan Bach starting in 40 s Sleep apnea Brother 1 Juan Gersaeid Sleep apnea Brother 2 Omar Gernon ADD Daughter 1 Roselia Yoder Asthma Daughter 1 Roselia Yoder daughter Learning disorder Daughter 1 Roselia Yoder ADD Daughter 2 Jose Yoder ADD Daughter 3 Hope Paresh Alcohol abuse Father Zachary Bahc Arthritis Father Zachary Bach Colon polyps Father Zachary Bach Coronary artery disease Father Zachary Bach qu adruple bypass at 74 Dementia Father Zachary Bach Moody Gutierrez did autopsy b/c it presented as FTD; have report Hyperlipidemia Father Zachary Bach Hypertension Father Zachary Bach starting in 4 0s Melanoma Father Zachary Bach unknown date; removed and ok Prostate cancer Father Zachary Bach Skin cancer Father Zachary Bach unknown date; removed and ok Sleep apnea Father Zachary Bach Arthritis Mother Jeannie Bach Colon polyps Mother Jeannie Bach Hyperlipidemia Mother Jeannie Bach Hypertension Mother Jeannie Bach starting in 40s Osteoporosis Mother Jeannie Bach Thyroid disease Mother Jeannie Bach Alcohol abuse Paternal Grandfather Zachary CasianoPastora Karansaeid Sleep apnea Paternal Grandfather Zachary CasianoPastora Karansaeid Stroke Paternal Grandfather Zachary Russosaeid from it; around age 58 Breast cancer Paternal Grandmother Cara Russosaeid pos t-menopause Arthritis Sister Bailey aBch Sleep apnea Sister Bailey Bach Thyroid disease Sister Bailey Bach Asthma Son Chava Yoder son Learning disorder Son Chava Yoder Relation Name Status Comments Brother 1 Juan Gernon Brother 2 Omar Gernon Daughter 1 Roselia Yoder Daughter 2 Jose Yoder Daughter 3 Hope Paresh Father Zachary Bach Mother Jeannie Bach Paternal Grandfather Zachary CasianoPastora Bach Paternal Grandmother Cara aBch Sister Bailey Bach Son Chava Yoder Social History Tobacco Use Types Packs/Day Years Used Date Smoking Tobacco: Never Passive Smoke Exposure: Never Smokeless Tobacco: Never Tobacco Cessation:Counseling Given: Not Answered Alcohol Use Standard Drinks/Week Comments Not Currently 1 (1 standard drink = 0.6 oz pure alcohol) Rarely consume currently - 1-4 glasses a year [facility] Utilities Answer Date Recorded In the past 12 months has th e electric, gas, oil, or water company threatened to shut off services in your home? No 08/10/2024 Humiliation, Afraid, Rape, and Kick questionnair e Answer Date Recorded Within the last year, have y ou been afraid of your partner or ex-partner? No 08/10/2024 Within the last year, have y ou been humiliated or emotionally abused in other ways by your partner or ex-partner? No Within the last year, have y ou been kicked, hit, slapped, or otherwise physically hurt by your partner or ex-partner? No 08/10/2024 Within the last year, have y ou been raped or forced to have any kind of sexual activity by your partner or ex-partner? No 08/10/2024 Hunger Vital Sign Answer Date Recorded Within the past 12 months, y ou worried that your food would run out before you got the money to buy more. Never true 08/10/20 24 Within the past 12 months, t he food you bought just didn't last and you didn't have money to get more. Never true 08/10/2024 PRAPARE - Transportation Answer Date Re corded In the past 12 months, has l ack of transportation kept you from medical appointments or from getting medications? No 07/20 In the past 12 months, has l ack of transportation kept you from meetings, work, or from getting things needed for daily living? No 08/10/2024 Housing Stability Answer Date Recorded What is your living situation today? I have a [facility] place to live 08/10/2024 Education Answer Date Recorded What is the highest level of school you have completed or the highest degree you have received? Professional school degree (e.g., MD, DDS, DVM, RENETTA) 08/08/2020 Comments Unknown Sex and Gender Information Value Date Recorded Sex Assigned at Female 11/15/2021 8:24 AM FILTER PRESS SUPERVISOR Legal Sex Female 8:35 PM FILTER PRESS SUPERVISOR Gender Identity Female 08/08/2020 9:15 PM CDT Sexual Orientation Straight 08/08/2020 9: 15 PM CDT Last Filed Vital Signs Vital Sign Reading Time Taken Comments Blood Pressure 132/73 08/12/2024 12:30 PM CDT Pulse 82 08/12/2024 7:50 AM CDT Temperature 36.4 C (97.5 F) 08/12/2024 7:50 AM CDT Respiratory Rate 16 08/12/2024 7:50 AM CDT Oxygen Saturation 98% 08/12/2024 7:50 AM CDT Inhaled Oxygen Concentration - - Weight 85.2 kg (187 lb 11.6 oz) 02/03/2025 2:25 PM CDT Height 164.8 cm (5' 4.88) 02/03/2025 2:25 PM CD T Body Mass Index 31.35 02/03/2025 2:25 PM CDT Plan of Treatment Upcoming Encounters Date Type Department Care Team (Latest Contact Info) Description 06/23/2025 11:00 AM CDT Clinical Communication Virtual Review in [place], [place] [address] [place] [address] 06/26/2025 9:30 AM CDT Comprehensive Visit [facility] in [place], [place] [address] [place] [phone] Elicia Batres M.B.B.S. [address] [place] [phone] Health Maintenance Due Date Last Done Comments CT Colonography 1972 Cologuard 1972 Depression Monitoring (PHQ-9) 1972 FIT 1972 HIV Screening 1972 Hepatitis C Screening 1972 Hepatitis B Vaccines (1 of 3 - 19+ 3-dose series) 1991 Cervical/Vaginal Cancer Screening 01/17/2018 01/17/2015 (Performed elsewhere) Pneumococcal vaccine (50+ years) (1 of 1 - PCV) 2022 Depression Monitoring (PHQ-9 for quality tracking) 10/19/2024 Influenza Vaccine (#1) 2025 , 07/15/2023, 07/13/2022, Additional history exists Thyroid Stimulating Hormone (TSH) test for thyroid function 09/23/2025 09/23/2024, 11/19/2023, 09/25/2021, Additional history exists Lipid (Cholesterol) Screening 11/22/2025 11/22/2020, 11/03/2018 Mammogram 12/19/2025 12/19/2024, 03/0 12/2024, 11/20/2023, Additional history exists Fasting Glucose for Diabetes Screening 08/11/2027 08/11/2024, 08/10/2024, 08/08/2024, Additional history exists Colonoscopy 08/28/2032 08/28/2022, 07/28/2022 Colorectal Cancer Screening 08/28/2032 DTaP,Tdap,and Td Vaccines (4 - Td or Tdap) 07/05/2034 07/05/2024, 10/03/2016, 03/26/2011, Additional history exists Zoster Vaccines Completed 07/15/2023, 08/12/2022 COVID-19 Vaccine Completed 07/05/2024, 12/2022, 07/13/2022, Additional history exists IPV Vaccines Aged Out No longer eligi ble based on patient's age to complete this topic Medical Devices Implanted Type Area Curer Foam Rubber Device Identifier Shelf Expiration Date Model / Serial / Lot [place] Surg Tfln 1x1 - [id number] Implanted:Qty : 1 on 08/10/2024 by Roc Sue M.D. at [facility] Hardware e.g. pins/screws/ rods Left: Brain Symptify 32-448 / / Plt Mtr Cmf Cover Edith 24 - [id number] Implanted:Qty : 1 on 08/10/2024 by Roc Sue M.D. at [facility] Hardware e.g. pins/screws/ rods Depuy Synthes . 4 / / Plt Mtr Cmf Str 2h 12 - [id number] Implanted:Qty : 1 on 08/10/2024 by Roc Sue M.D. at [facility] Hardware e.g. pins/screws/ rods Depuy Synthes 503. 2 / / Plt Bx Matrix 10x16 - [id number] Implanted:Qty : 1 on 08/10/2024 by Roc Sue M.D. at [facility] Hardware e.g. pins/screws/ rods Depuy Synthes 3 / / Scrw Ti Mtr Slv 1.55x2.55x4 - [id number] Implanted:Qty : 9 on 08/10/2024 by Roc Sue M.D. at [facility] Hardware e.g. pins/screws/ rods Depuy Synthes 4.01 / / Procedures Procedure Name Priority Date/Time Associated Diagnosis Comments BASIC METABOLIC PANEL, S/P Routine 08/11/2024 3:21 AM CDT THYROID-STIMULATING HORMONE-SENSITIVE (S-TSH) Routine 09/25/2015 7:39 AM FILTER PRESS SUPERVISOR from Last 3 Months or Most Recently Relevant to Health Maintenance Results * Basic Metabolic Panel (08/11/2024 3:21 AM CDT) Potassium, S 4.7 3.6 - 5.2 mmol/L 08/11/2024 5:13 AM CDT DTL Sodium, S 136 135 - 145 mmol/L 08/11/2024 5:13 AM CDT DTL Chloride, S 103 98 - 107 mmol/L 08/11/2024 5:13 AM CDT DTL Bicarbonate, S 22 22 - 29 mmol/L 08/11/2024 5:13 AM CDT DTL Anion Gap 11 7 - 15 08/11/2024 5:13 AM CDT DTL BUN (Blood Urea Nitrogen), S 7 6 - 21 mg/dL 08/11/2024 5:13 AM CDT DTL Creatinine 0.82 0.59 - 1.04 mg/dL 08/11/2024 5:13 AM CDT DTL Estimated GFR (eGFR) 86 >=60 mL/min/BSA 08/11/2024 5:13 AM CDT DTL Comment: Estimated GFR calculated using the 2020 CKD_EPI creatinine equation. Calcium, Total, S 9.3 8.6 - 10.0 mg/dL 08/11/2024 5:13 AM CDT DTL Glucose, S 135 70 - 140 mg/dL 08/11/2024 5:13 AM CDT DTL Blood (Blood, Venous) 08/11/2024 3:21 AM CDT 08/11/2024 4:56 AM CDT Gregor Stokes M.D., Ph.D. LAB BLOOD ADD-ON Final R esult [facility] [address] DTL [facility] [place] [address] [place] [address] * S-TSH (Thyroid-Stimulating Hormone - Sensitive) (09/25/2015 7:39 AM FILTER PRESS SUPERVISOR) TSH, Sensitive 1.0 0.3 - 4.2 MIU/L [facility] 09/25/2015 7:39 AM FILTER PRESS SUPERVISOR 09/25/2015 7:39 AM FILTER PRESS SUPERVISOR Bernie Begum M.D. LAB BLOOD ADD-ON Final Result Performing Organization Address City/[facility] Co de Phone Number [facility] [address] from Last 3 Months or Most Recently Relevant to Health Maintenance Insurance [facility] Advance Directives For more information, please contact: [phone] * Full Code (Latest Code Status on File) Date Activated Date Inactivated Comments 08/10/2024 3:26 PM 08/12/2024 4:35 PM Question Answer Comments Full Code: Not Discussed Due to: Patient not available * Full Code Date Activated Date Inactivated Comments 08/10/2024 6:55 AM 08/10/2024 3:26 PM Question Answer Comments Full Code: Not Discussed Due to: Patient not available Care Teams Book Coverer Relationship Specialty Start Date End Date Elsewhere, Pcp PCP - General Internal Medicine 11/14/21
--- OUTSIDE RECORDS SUMMARY | 2025-06-12 19:58 | XMS_ITS | Encounter Summary ---
Author Organization [facility] Address [address] [place] [address] Care Team Providers Care Casing Fluid Tender Name Role Phone Tatiana Gonzalez MD Primary Care Provider [phone] Encounter Details Date Type Department Care Team (Latest Contact Info) Description 03/01/1998 Orders Only Linda Jim MD [address] [id number] Social History Tobacco Use Types Packs/Day Years Used Date Smoking Tobacco: Never Assessed Comments Unknown Sex and Gender Information Value Date Recorded Sex Assigned at Not on file Legal Sex Female 4:30 AM CDT Gender Identity Not on file Sexual Orientation Not on file documented as of this encounter Plan of Treatment Not on file documented as of this encounter Visit Diagnoses Not on filedocumented in this encounter Care Teams Casing Fluid Tender Relationship Specialty Start Date End Date Tatiana Gonzalez MD [address] [place] [id number] PCP - General 01/19/11 documented as of this encounter
--- OUTSIDE RECORDS SUMMARY | 2025-06-12 19:58 | XMS_ITS | Clinical Summary ---
Author Organization [facility] Address [address] [place] [address] Care Team Providers Care Gallery Manager Name Role Phone Linsey Renteria Karmen Primary Care Provider [phone] Allergies Active Allergy Reactions Criticality Noted Date Comments Droperidol Tremors,Tachycardia Medium 03/24/2011 Pollen Extracts Itching 03/05/2015 Propranolol Other - Describe In Comment Field 0 03/26/2023 dystonia Medications multivitamin (MVI) tablet Take 1 tablet by mouth once daily. 0 4 Active valACYclovir (VALTREX) 1 gram tabletIndications: Recurrent cold sores Take 1 tablet by mouth 2 times daily. As needed for cold sore. 30 tablet 3 9 Active acetaminophen (TYLENOL EXTRA STRGTH) 500 mg tablet Take 1,000 mg by mouth every 6 hours if needed. 4 Active cholecalciferol (VITAMIN D3) 5,000 unit capsule Take 5,000 units by mouth. Active estradiol 0.0375 mg/24 hr SEMIWEEKLY patch Apply 1 Patch on dry, clean, hairless skin. 4 Active progesterone micronized (PROMETRIUM) 100 mg capsule Take 100 mg by mouth. Active dextroamphetamine- amphetamine (AdderalL) 5 mg tabletIndications: Attention deficit hyperactivity disorder (ADHD), combined type Take 2 tabs in morning and 1 in pm 90 Tablet 5 Active dextroamphetamine- amphetamine (AdderalL) 5 mg tabletIndications: Attention deficit hyperactivity disorder (ADHD), combined type Take 2 tabs in morning and 1 in pm 90 Tablet 5 Active levothyroxine (SYNTHROID) 75 mcg tabletIndications: Carl's disease Take 1 Tablet (75 mcg) by mouth before breakfast. 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 Vitamin D deficiency 03/14/2014 Reflux 12/28/2013 Overview (01/30/2014): EGD 01/2014 normal Resolved Problems Problem Noted Date Diagnosed Date Resolved Date section 03/25/2011 12/14/2015 History of section, low transverse 05/14/2009 12/14/2015 Encounters Date Type Department Care Team Description 05/05/2025 7:00 AM CDT Procedure Only [facility] [address] [place] [address] Alexander Webster MD Staple Removal 05/05/2025 Travel 05/03/2025 Travel 04/07/2025 9:45 AM CDT Orders Only [facility] [address] [place] [address] Lab, [place] Lab 04/07/2025 Orders Only [facility] [address] [place] [address] Tameka Puente MD Lab 04/07/2025 Orders Only [facility] [address] [place] [address] Tameka Puente MD Error-please disregard 04/07/2025 Travel 04/03/2025 7:25 AM CDT Office Visit [facility] [address] [facility] [address] Tameka Puente MD Pre-Op Exam (Microvascular decompression 04/25/[address] [facility] [address] Dex Peña); Allergic Reaction (Patient states she is not allergic to propanolol just droperidol); Lab 04/03/2025 Travel 03/20/2025 E-Visit [facility] [address] [place] [address] Karmen Garsia, MRI Scheduled - Anxiety from Last 3 Months Immunizations Immunization Administration Dates Next Due AMB Influenza, IIV4 PF (=>6 mos Flulaval,Fluzone Fluarix)(Flu Clinic Only) 09/22/2014 COVID-19 VACCINE SPIKEVAX (M ODERNA 50MCG/0.5ML) 12YO+ PFS 07/21/2023 COVID-19 vaccine (Moderna 100mcg/0.5mL) PF, MDV 09/02/2021,02/12/2021,01/15/2021 Hepatitis A (Adult) 11/25/2000 Hepatitis A (Peds),Unspecified 11/25/2000 Influenza A (H1N1), Inactivated 08/31/2009 Influenza Virus, Unspecified 07/20/2010 Influenza, CCIIV3 (Age >=6 M O) (Egg Free) 07/05/2024 Influenza, IIV3 (Age >=3 years) 07/27/20 12,06/19/2010,09/02/2007,2004 Influenza, IIV4 06/28/2020, 9,08/02/2018,2016,09/22/2014 Influenza,CCIIV4 PRESERV FREE 07/15/2023, 022 Td (Age >=7 Years) 08/24/2005,11/18/1994 Td, Preservative Free (age > = 7 Years) 10/03/2016 Tdap 07/05/2024,03/26/2011 Zoster (Shingrix-RZV, recombinant) 07/15/2023, Family History Medical [...] PHQ-2 Answer Date Recorded PHQ-2 TOTAL SCORE 3 09/23/2024 Social Connections Answer Date Recorded Do you often feel lonely or isolated from those around you? 0 09/23/2024 Financial Resource Strain Answer Date R ecorded Difficulty of Paying Living Expenses 3 09/23/2024 Difficulty of Paying Living Expenses Not on file 09/23/2024 Food Insecurity Answer Date Recorded Do you worry your food will run out before you are able to buy more? 1 09/23/2024 Transportation Needs Answer Date Record ed Does lack of transportation keep you from medica l appointments? 1 09/23/2024 Does lack of transportation keep you from work, meetings or getting things that you need? 1 09/23/2024 Housing Stability Answer Date Recorded What is your housing situation today? 1 09/23/2024 Utilities Answer Date Recorded Do you have trouble paying f or utilities (for example, heat, electricity, water, phone)? 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 Not on file Not on file Not on file Obstetrics History Para Term AB IAB SAB Ectopic Multiple Livin g Live Births 4 4 4 0 0 0 0 0 0 4 2 Date Outcome GA Total Labor Labor/2nd/3rd Weight Sex Type Anes PTL Rosalva A1 A5 Name Clin 2004 Term 40w 5d 3.88 kg (8 lb 9 oz) F VAGINA L VACU Livin g Jose Mann rand Delivery Location:[facility] Comments:4th degree te ar healed well 2006 Term 39w 0d M C-Sect ion Comments:hemorrage 2008 Term 39w 0d 3.74 kg (8 lb 4 oz) F C-Sect ion Delivery Location:[facility] 2010 Term 39w 0d F C-Sect ion Marbin MARTBG Delivery Location:[facility] Last Filed Vital Signs Vital Sign Reading Time Taken Comments Blood Pressure 134/87 05/05/2025 7:03 AM CDT Pulse 67 05/05/2025 7:03 AM CDT Temperature 36.6 C (97.9 F) 08/26/2019 9:21 AM LIGHTING ENGINEER Respiratory Rate 16 09/23/2024 8:51 AM LIGHTING ENGINEER Oxygen Saturation 96% 05/05/2025 7:03 AM CDT Inhaled Oxygen Concentration - - Weight 86 kg (189 lb 11.2 oz) 05/05/2025 7:03 AM CDT Height 165.1 cm (5' 5) 04/03/2025 7:35 AM CDT Body Mass Index 31.57 04/03/2025 7:35 AM CDT Plan of Treatment Health Maintenance Due Date Last Done Comments HIV for age 15-65 1987 Hepatitis C screening for ag e 18-79 1990 Hepatitis B series for 19+ ( 1 of 3 - 19+ 3-dose series) 1991 Pneumococcal series for age 50+ (1 of 1 - PCV) 2022 Pap test for age 21-65 11/03/2023 9, 11/03/2018, 07/19/2016 (Completed outside of [facility]) Influenza Vaccine (#1) 2025 4, 07/15/2023, 07/13/2022, Additional history exists Depression screening for age 12+ 09/23/2025 09/23/2024, 11/19/2023, 05/15/2023, Additional history exists Mammogram for age 45-75 12/19/2025 12/20/19, 11/20/2023, 11/18/2022, Additional history exists BMI (ht and wt on same day) for age 18+ 04/03/2026 04/03/2025, 09/23/2024, 11/19/2023, Additional history exists Lipids for age 45-75 04/03/2030 04/03/2025, 12/21/2024, 09/23/2024, Additional history exists Colonoscopy through age 75 08/28/203208/28, 08/28/2022, 08/28/2022 Tetanus booster 07/05/2034 07/05/2024, 12/03/2016, 03/26/2011, Additional history exists Zoster (shingles) series for age 50+ Completed 07/15/2023, 08/12/2022 COVID-19 vaccine series Completed 07/05/20 24, 07/21/2023, 07/13/2022, Additional history exists Procedures Procedure Name Priority Date/Time Associated Diagnosis Comments APTT Routine 04/07/2025 9:45 AM CDT GA READING EKG - NO CHARGE, COMP ONLY Routine 04/06/2025 1:49 PM CDT Preop examination EKG 12 LEAD UNIT PERFORMED Routine 04/06/2025 1:47 PM CDT Preop examination VITAMIN D 25 (DEFICIENCY) Routine 04/03/2025 8:31 AM CDT Vitamin D deficiency VITAMIN B12 Routine 04/03/2025 8:31 AM CDT Low vitamin B12 level LIPID PANEL W REFLEX MEASURED LDL Routine 04/03/2025 8:31 AM CDT Hyperlipidemia, unspecified hyperlipidemia type CBC WITH AUTO DIFFERENTIAL Routine 04/03/2025 8:31 AM CDT Preop examination BASIC METABOLIC PANEL Routine 04/03/2025 8:31 AM CDT Preop examination APTT Routine 04/03/2025 8:31 AM CDT Preop examination PROTIME-INR Routine 04/03/2025 8:30 AM CDT Preop examination XR MAMMO ERNA BILAT SCREEN Routine 12/19/2024 4:52 PM LIGHTING ENGINEER Encounter for screening mammogram for malignant neoplasm of breast COLONOSCOPY SCREENING Routine 08/28/2022 8:47 AM LIGHTING ENGINEER Colon cancer screening SEWER PIPE LAYER THIN PREP PAP SCREEN IMAGED Routine 11/03/2018 10:05 AM LIGHTING ENGINEER Pap smear for cervical cancer screening from Last 3 Months or Most Recently Relevant to Health Maintenance Results * APTT (04/07/2025 9:45 AM CDT) Only the most recent of2 resultswithin the time period is included. [facility] PARTIAL THROMBOPLASTIN TIME, ACTIVATED 29 23 - 32 sec [facility] Comment: This test has not been validated for monitoring unfractionated heparin therapy. For testing that is validated for this type of therapy, please refer to the Heparin Anti-Xa assay (test code 04916). For additional information, please refer to http://education.[employer]/faq/NQJ810 (This link is being provided for informational/educational purposes only.) 04/07/2025 9:45 AM CDT 04/07/2025 9:46 AM CDT us Tameka Puente MD HEMATOLOGY Final R esult [employer] [facility] [address] [place] [address], [place] [address] [address] * GA READING EKG - NO CHARGE, COMP ONLY (04/06/2025 1:49 PM CDT) us Tameka Puente MD PB - PROVIDER READINGS Final Result * EKG 12 LEAD UNIT PERFORMED (04/06/2025 1:47 PM CDT) us Tameka Puente MD EKG ORD Final R esult * (ABNORMAL) LIPID PANEL W REFLEX MEASURED LDL (04/03/2025 8:31 AM CDT) [facility] CHOLESTEROL, TOTAL 244(H) <200 mg/dL [facility] HDL CHOLESTEROL 62 > OR = 50 mg/dL [facility] TRIGLYCERIDES 104 <150 mg/dL [facility] LDL-CHOLESTEROL 160(H) mg/dL (calc) [facility] Johnson Comment: Reference range: <100 Desirable range <100 mg/dL for primary prevention; <70 mg/dL for patients with CHD or diabetic patients with > or = 2 CHD risk factors. LDL-C is now calculated using the Jaskaran calculation, which is a validated novel method providing better accuracy than the Friedewald equation in the estimation of LDL-C. Karlos SS et al. KISHORE. 2013;310(19): 2036-4240 (http://education.[employer]/faq/GGV908) CHOL/HDLC RATIO 3.9 <5.0 (calc) [facility] NON HDL CHOLESTEROL 182(H) <130 mg/dL (calc) [facility] Comment: For patients with diabetes plus 1 major ASCVD risk factor, treating to a non-HDL-C goal of <100 mg/dL (LDL-C of <70 mg/dL) is considered a therapeutic option. Blood BLOOD SPECIMEN / Unknown 04/03/2025 8:31 AM CDT 04/03/2025 8:31 AM CDT Becca Moreno NP CHEMISTRY Final Res ult [employer] [facility] [address] [place] [address], [place] [address] [address] * VITAMIN D 25 (DEFICIENCY) (04/03/2025 8:31 AM CDT) VITAMIN D,25-OH,TOTAL,IA 34 30 - 100 ng/mL [facility] Comment: Vitamin D Status 25-OH Vitamin D: Deficiency: <20 ng/mL Insufficiency: 20 - 29 ng/mL Optimal: > or = 30 ng/mL For 25-OH Vitamin D testing on patients on D2-supplementation and patients for whom quantitation of D2 and D3 fractions is required, the Quest[facility](TM) 25-OH VIT D, (D2,D3), LC/MS/MS is recommended: order code 10227 (patients >2yrs). See Note 1 Note 1 For additional information, please refer to http://education.[employer]/faq/HUC905 (This link is being provided for informational/ educational purposes only.) Blood BLOOD SPECIMEN / Unknown 04/03/2025 8:31 AM CDT 04/03/2025 8:31 AM CDT Becca Moreno TARGETEER SEND OUTS Final Res ult [employer] [facility] [address] [place] [address], [facility] [address] [place] [address] * CBC AND DIFFERENTIAL (04/03/2025 8:31 AM CDT) Pathologist [facility] WHITE BLOOD CELL COUNT 5.0 3.8 - 10.8 Thousand/u L [facility] RED BLOOD CELL COUNT 4.62 3.80 - 5.10 Million/uL [facility] HEMOGLOBIN 14.1 11.7 - 15.5 g/dL [facility] HEMATOCRIT 43.7 35.0 - 45.0 % [facility] MCV 94.6 80.0 - 100.0 fL [facility] MCH 30.5 27.0 - 33.0 pg [facility] MCHC 32.3 32.0 - 36.0 g/dL [facility] Comment: For adults, a slight decrease in the calculated MCHC value (in the range of 30 to 32 g/dL) is most likely not clinically significant; however, it should be interpreted with caution in correlation with other red cell parameters and the patient's clinical condition. RDW 12.3 11.0 - 15.0 % [facility] PLATELET COUNT 258 140 - 400 Thousand/u L [facility] MPV 9.6 7.5 - 12.5 fL [facility] ABSOLUTE NEUTROPHILS 2,845 1,500 - 7,800 cells/uL [facility] ABSOLUTE LYMPHOCYTES 1,345 850 - 3,900 cells/uL [facility] ABSOLUTE MONOCYTES 590 200 - 950 cells/uL [facility] ABSOLUTE EOSINOPHILS 140 15 - 500 cells/uL [facility] ABSOLUTE BASOPHILS 80 0 - 200 cells/uL [facility] NEUTROPHILS 56.9 % [facility] LYMPHOCYTES 26.9 % [facility] MONOCYTES 11.8 % [facility] EOSINOPHILS 2.8 % [facility] BASOPHILS 1.6 % [facility] Blood BLOOD SPECIMEN / Unknown 04/03/2025 8:31 AM CDT 04/03/2025 8:31 AM CDT Tameka Puente MD HEMATOLOGY Final R esult [employer] [facility] [address] [place] [address], [place] [phone] [facility] [address] [place] [address] * VITAMIN B12 (04/03/2025 8:31 AM CDT) Pathologist [facility] VITAMIN B12 677 200 - 1,100 pg/mL [facility] Blood BLOOD SPECIMEN / Unknown 04/03/2025 8:31 AM CDT 04/03/2025 8:31 AM CDT Becca Moreno NP CHEMISTRY Final Res ult [employer] [facility] [address] [place] [address], [place] [phone] [place] [facility] [address] [place] [address] * BASIC METABOLIC PANEL (04/03/2025 8:31 AM CDT) GLUCOSE 82 65 - 99 mg/dL [facility] Comment: Fasting reference interval UREA NITROGEN (BUN) 11 7 - 25 mg/dL [facility] CREATININE 0.89 0.50 - 1.03 mg/dL [facility] EGFR 78 > OR = 60 mL/min/1. 73m2 [facility] BUN/CREATININE RATIO SEE NOTE: 6 - 22 (calc) [facility] Comment: Not Reported: BUN and Creatinine are within reference range. SODIUM 139 135 - 146 mmol/L [facility] POTASSIUM 4.0 3.5 - 5.3 mmol/L [facility] CHLORIDE 105 98 - 110 mmol/L [facility] CARBON DIOXIDE 25 20 - 32 mmol/L [facility] ELECTROLYTE BALANCE 9 7 - 17 mmol/L (calc) [facility] CALCIUM 9.0 8.6 - 10.4 mg/dL [facility] Blood BLOOD SPECIMEN / Unknown 04/03/2025 8:31 AM CDT 04/03/2025 8:31 AM CDT Tameka Puente MD CHEMISTRY Final R esult [employer] [address] [address], [place] [address] [address] * PROTIME-INR (04/03/2025 8:30 AM CDT) INR 1.1 <1.3 04/03/2025 1:37 PM CDT [facility] [employer] [facility] PROTIME 12.4 10.6 - 12.4 sec 04/03/2025 1:37 PM CDT [facility] [facility] Blood BLOOD SPECIMEN / Unknown [facility] / Unknown 04/03/2025 8:30 AM CDT 04/03/2025 8:30 AM CDT Narrative [facility] - 04/03/2025 1:37 PM CDT Therapeutic Range 2.0-3.0 for most anticoagulated patients 2.5-3.5 or 4.0 for high risk patients The INR is only used for patients on stable oral anticoagulant therapy. It makes no significant contribution to the diagnosis or treatment of patients whose Protime is prolonged for other reasons. INR results are increased when heparin levels exceed 1.0 U/mL, which corresponds to an aPTT >125 seconds if the patient is on UFH. us Tameka Puente MD HEMATOLOGY Final R esult [facility] [address] [place] [address], [place] * XR MAMMO ERNA BILAT SCREEN (12/19/2024 4:52 PM LIGHTING ENGINEER) Anatomical Region Laterality Modality BREASTS, Breast Left, Breast Right Bilateral Mammography Impressions 12/20/2024 2:41 PM LIGHTING ENGINEER There is no radiographic evidence for malignancy. Recommend annual mammograms. MAMMOGRAM ASSESSMENT: ACR 1 Negative PATIENTS: You will also receive a letter with your examination results in an easy to read format. If you have questions about your results, please contact your referring provider. Narrative 12/20/2024 2:41 PM LIGHTING ENGINEER For Patients: As a result of the Century Cures Act, medical imaging exams and procedure reports are released immediately into your electronic medical record. You may view this report before your referring provider. If you have questions, please contact your health care provider. XR MAMMO ERNA BILAT SCREEN [[id number]] CLINICAL HISTORY: This is an asymptomatic 54 y.o. patient. INDICATION FOR EXAM: Mammogram Screening. TECHNIQUE: CC and MLO views were obtained. This study was evaluated with the assistance of Computer-Aided Detection. Breast Tomosynthesis was used in interpretation. COMPARISON FILM: Yes 11/20/23 Xamarin 11/18/22 Xamarin FINDINGS: The breasts are extremely dense, which lowers the sensitivity of mammography. There are no dominant masses, suspicious micro calcifications or areas of architectural distortion. us Karmen Renteria DO MAMMO Final Resu lt * COLONOSCOPY (08/28/2022 8:43 AM LIGHTING ENGINEER) 08/28/2022 8:43 AM LIGHTING ENGINEER Narrative Transcriptions Karlos Curran MD - 08/28/2022 9:30 AM CST Patient Name: Glenis Mart Procedure Date: 08/28/2022 Gender: Female Date of : 1970 Admit Type: Outpatient Procedure: Colonoscopy Proceduralist: Karlos Curran MD , Yarely Bradley, IRIS(Nurse), Mackenzie Durham (Nurse) Referring MD: Karmen Stiles [...] candidate for conscious sedation. The endoscope [id number]-[id number] was passed through the anus andadvanced to [...] 8:43 AM Procedure Code(s): --- Professional --- 82117, Colonoscopy, flexible; diagnostic, including collection of specimen(s) bybrushing or washing, when performed (separateprocedure) Diagnosis Code(s): --- Professional --- Z12.11, Encounter for screening formalignant neoplasm of colon CPT copyright 2020 [employer]. All rights reserved. The codes documented in this report are preliminary and upon mechanical assembly technician reviewmay be revised to meet current compliance requirements. Scope In: 9:12:37 AM Scope Withdrawal Time 0 hours 9 minutes 13 seconds Scope Out: 9:26:48 AM us Karlos Curran MD PROCEDURE ORD Final Res ult * SEWER PIPE LAYER THIN PREP PAP SCREEN IMAGED (11/03/2018 10:05 AM LIGHTING ENGINEER) Case Report Gynecologic Cytology Report Case: [id number] Authorizing Provider: Becca Laura MD Collected: 11/03/2018 1005 Ordering Location: [facility] Received: 11/03/2018 1130 Clinic First Screen: Angel Monet Specimen: SEWER PIPE LAYER ThinPrep Vial Screening, Cervical 11/11/2018 11:14 AM [facility] ENTRAL LABORATORY INTERPRETATION/ RESULT NEGATIVE FOR INTRAEPITHELIAL LESION OR MALIGNANCY (NIL) (none) 11/11/2018 11:14 AM LIGHTING ENGINEER [facility] ENTRAL LABORATORY at 1114 LIGHTING ENGINEER SPECIMEN ADEQUACY Satisfactory for evaluation No endocervical component seen 11/11/2018 11:14 AM LIGHTING ENGINEER [facility] [employer] [facility] ENTRAL LABORATORY HPV REQUEST HPV and PAP 11/11/2018 11:14 AM [facility] [employer] [facility] ENTRAL LABORATORY Date of LMP 10/11/2018 11/11/2018 11:14 AM [facility] [employer] [facility] ENTRAL LABORATORY Last Pap Date 07/201611/11/2018 11:14 AM LIGHTING ENGINEER [facility] [employer] [facility] ENTRAL LABORATORY Last Pap Result NIL 9 11:14 AM [facility] [employer] [facility] EN[facility]AL LAB[facility]ORY Abnormal Pap or [place] Bx in last 5 years No 11/11/2018 11:14 AM [facility] [employer] [facility] EN[facility]AL LAB[facility]ATORY Menstrual Status Regular Periods 11/11/2018 11:14 AM [facility] [employer] [facility] ENTRAL LABORATORY [place] Bx Done Today No 11/11/2018 11:14 AM [facility] [employer] [facility] ENTRAL LABORATORY Additional Information None given 11/11/2018 11:14 AM [facility] [employer] [facility] ENTRAL LABORATORY Automated Review Successful 11/11/2018 11:14 AM [facility] [employer] [facility] ENTRAL LABORATORY Comment:Specimen processed s uccessfully by automated accounts payable administrator device, ThinPrep Imaging System, [employer] ANCILLARY TESTING SEWER PIPE LAYER HPV Ordered, Please see separate report 11/11/2018 11:14 AM [facility] ENTRNC LABORATORY Note The pap test is a screening technique, not a diagnostic procedure. It is used primarily to screen for squamous cancers and precursor lesions. Published studies have shown that it is subject to both false negative and false positive results. The pap test should not be used as the sole means to diagnose or exclude pre-malignant and malignant lesions. Cytology is screened and interpreted at [facility], Central Laboratory - [address], [place] [address] and [facility] - [address]; [place] [address] [address] [facility] - [address]; [place] [address] and [facility] [address]; [place] [address] 11/11/2018 11:14 AM LIGHTING ENGINEER [facility] Other (Cervical) Non-Blood / Unknown 11/03/2018 10:05 AM LIGHTING ENGINEER 11/03/2018 11:30 AM LIGHTING ENGINEER us Becca Laura MD PATHOLOGY/CYTOLOGY Dia black Result [facility]TRAL LABORATORY [address] [place] [address], from Last 3 Months or Most Recently Relevant to Health Maintenance Insurance [facility] Advance Directives * Full Code (Latest Code [...] 10:42 PM 03/07/2009 11:35 PM Care Teams Gallery Manager Relationship Specialty Start Date End Date Karmen Garsia DO [address] [place] [address] PCP - General Family Practice 05/05/25
--- OUTSIDE RECORDS SUMMARY | 2025-06-12 19:58 | XMS_ITS | Encounter Summary ---
Author Organization [facility] Address [address] [place] [address] Care Team Providers Care Fisheries Director Name Role Phone Tatiana Gonzalez MD Primary Care Provider Encounter Details Date Type Department Care Team (Latest Contact Info) Description 02/23/1996 Orders Only Deborah Lu [facility] [address] [place] [address] Social History Tobacco Use Types Packs/Day Years [...] on filedocumented in this encounter Care Teams Fisheries Director Relationship Specialty Start Date End Date Tatiana Gonzalez MD [facility] [place] [address] PCP - General 01/19/11 documented as of this encounter
--- OUTSIDE RECORDS SUMMARY | 2025-06-12 19:58 | XMS_ITS | Clinical Summary ---
Author Organization [facility] Address [address] [place] [address] Care Team Providers Care Livestock Showman Name Role Phone Tatiana Gonzalez MD Primary Care Provider + [phone] Source Comments You are receiving this document [...] for each transition of care or referral. 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 Screened 11/2010 and TSH 1.9 Depressive disorder 07/20/2010 Overview (2017): Depression NOS Urticaria 06/11/2010 Overview (2017): Urticaria NOS Benign neoplasm of skin 07/24/2004 Overview (2017): LW Modifier: s/p excision ANW 2003 left calf LW Onset: [id number] ; Dysplastic Nevus Immunizations Immunization Administration Dates Next Due Flu Vac Preserv [...] alcohol) Alcoholic Drinks/day: Amount:1-2 drinks; Freq:2-4/Month ; Comments No Sex and Gender Information Value Date Recorded Sex Assigned at Not on file Legal Sex Female 4:30 AM CDT Gender Identity Not on file Sexual Orientation Not on file Occupation Industry 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, 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 Not on file Not on file Not on file Last Filed Vital Signs Vital Sign Reading Time Taken Comments Blood Pressure 115/64 12/23/2011 9:40 AM PURCHASING ASSISTANT Pulse 69 12/23/2011 9:40 AM PURCHASING ASSISTANT Temperature 36.7 C (98.1 F) 04/19/2010 2:28 PM CDT C: 36.7 C Respiratory Rate 16 06/11/2010 [...] Services) 1988 Adult Preventive Visit 1990 HepB Vaccine (1) 1991 HepA Vaccine (2 of 2 - Risk 2-dose series) 05/25/2001 11/25/2000 Cervical Cancer Screening Due 01/04/2004 01/03/2004, 02/07/2003, 11/08/2001, Additional history exists Mammogram 12/11/2015 12/11/2014 Cholesterol 2017 12/23/2011, 02/2010, 11/25/2000 Pneumococcal Vaccine 50+ Yrs (1 of 1 - PCV) 2022 Zoster/Shingles Vaccine (2 of 2) 10/07/2022 08/12/2022 COVID-19 Vaccine (6 - season) 2024 07/13/2022, 02/13/2022, 09/02/2021, Additional history exists Influenza Vaccine (#1) 2025 , 06/28/2020, 09/06/2019, Additional history exists DTaP/Tdap/Td Vaccine (3 - Tdap) 10/03/2026 10/03/2016, 03/26/2011, 08/24/2005, Additional history exists Hib Vaccine Aged Out No longer eligi ble based on patient's age to complete this topic IPV (Polio) Vaccine Aged Out No longe r eligible based on patient's age to complete this topic MCV4 Vaccine Aged Out No longer eligi ble based on patient's age to complete this topic Meningococcal B Vaccine Aged Out No l onger eligible based on patient's age to complete this topic Procedures Procedure Name Priority Date/Time Associated Diagnosis Comments LIPID PANEL & DIRECT LDL (IF NEEDED) Routine 12/23/2011 11:05 AM PURCHASING ASSISTANT Other and unspecified hyperlipidemia (HRC) ANATOMICAL PATH LIQUID BASED Routine 01/03/2004 1:25 PM PURCHASING ASSISTANT from Last 3 Months or Most Recently Relevant to Health Maintenance Results * Lipid Panel and Direct LDL(If Needed) (12/23/2011 11:05 AM PURCHASING ASSISTANT) Cholesterol 173 0 - 200 mg/dL HP CONVERSION Triglycerides 48 0 - 149 mg/dL HP CONVERSION HDL Cholesterol 70 >39 mg/dL HP CONVERSION Cholesterol/HDL Ratio Screen 2.5 HP CONVERSION LDL Calculated 93 19 - 130 mg/dL HP CONVERSION Hours Fasting 12 HP CONVERSION 12/23/2011 11:0 5 AM PURCHASING ASSISTANT 12/23/2011 11:05 AM PURCHASING ASSISTANT Narrative HP CONVERSION - 12/23/2011 11:46 AM PURCHASING ASSISTANT Performed at [facility], [address] [place] [address] Transcriptions 11/28/2016 7:59 PM CSTNotes Recorded by Yomaira Gaspar RN on 12/24/2011 at 3:52 PMWaiting for Antinuclear Antibody, rest ok to wait. us Tatiana Gonzalez MD LAB_1 Final Result Performing Organization Address [facility] de Phone Number HP CONVERSION * Pap Smear (01/03/2004 1:25 PM PURCHASING ASSISTANT) PAP Smear Liquid Based SEE TEXT No normal range HP CONVERSION Comment: Patient: GLENIS MART CERVICAL CYTOLOGY REPORT Pathology # [id number] Date Obtained: Date Received: CYTOLOGIC IMPRESSION: Negative for intraepithelial lesion or malignancy. ADDITIONAL DATA LMP: 12-26-03 CLINICAL HIST HRT:ORTHO TRICYCLEN LIQUID BASED PAP CERVICAL SPECIMEN ADEQUACY: Satisfactory. ENDOCERVICAL CELLS: Absent. Verified 01/10/04 by: MARIUM (electronic signature) 01/03/2004 1:25 PM PURCHASING ASSISTANT us Zee Garay MD LAB_1 Final Result Performing Organization Address [facility] de Phone Number HP CONVERSION from Last 3 Months or Most Recently Relevant to Health Maintenance [place] [address] Care Teams Livestock Showman Relationship Specialty Start Date End Date Tatiana Gonzalez MD [address] [place] [address] PCP - General 01/19/11
[2025-06-12 20:01] VITALS: BP 145/84; PULSE 104; RESP 18; TEMP 36.6; O2SAT 99; BMI 31.6
--- NOTE | 2025-06-12 20:24 | CRLHL7_ITS ---
For Patients: As a result of the Century Cures Act, medical imaging exams and procedure reports are released immediately into your electronic medical record. You may view this report before your referring provider. If you have questions, please contact your health care provider. INDICATION: Headache TECHNIQUE: CT Head without i.v. contrast. Coronal and sagittal reformats were obtained. COMPARISON: 06/04/2023 FINDINGS: CSF space: The ventricles are normal for age. Brain: No evidence of mass, acute infarction or hemorrhage is seen. No mass-effect or midline shift is seen. Mild encephalomalacia is present in the lateral left cerebellum. Calvarium: The visualized paranasal sinuses are well aerated. The mastoid air cells are clear. The visualized orbits are grossly unremarkable. The patient is status post lateral left occipital craniotomy. IMPRESSION: 1. No evidence of acute infarction, intracranial hemorrhage, or mass-effect seen. Dictated by Manuel Jacome MD @ 06/12/2025 9:09:11 PM Please note that all CT scans at this facility use dose modulation, iterative reconstruction, and/or weight-based dosing when appropriate to reduce radiation dose to as low as reasonably achievable. Dictated by: Manuel Jacome MD @ 06/12/2025 21:09:14 (Electronically Signed)
--- NOTE | 2025-06-12 20:27 | ED_ITS ---
HPI - Headache General Chief Complaint: Headache/Migraine Stated Complaint: headache and fever Time Seen by Provider: 06/12/25 20:07 History of Present Illness HPI Narrative: This 55-year-old female comes in reporting severe headache. She states that she began having headache about 5 days ago that seemed to improve when taking some caffeine and Excedrin. Today however her headache was much worse and she felt feverish. She states that she measured a temperature at 100.2? degrees F. she arrives here with normal vital signs. She states that she does have some pain radiating down into her neck. She did have a spinal procedure done in [place] about 6 weeks ago and has been doing well since then. She does not have any neurologic deficits. She states that she normally does not get headaches. Related Data Home Medications ?Medication ?Instructions ?Recorded ?Confirmed dextroamphetamine-amphetamine 5 mg 1 tab PO BID 06/12/25 tablet levothyroxine 75 mcg tablet 75 mcg PO DAILY 05/28/23 0 06/12/25 valacyclovir 1 gram tablet 1,000 mg PO BID 05/28/23 Previous Rx's ?Medication ?Instructions ?Recorded estradiol 0.01% (0.1 mg/gram) 0.5 g vaginal 2XW #42.5 grams 05/20/24 vaginal cream (Estrace) estradiol 0.0375 mg/24 hr 1 patch transdermal 2XW #8 e a 08/22/24 semiweekly transdermal patch hydroxyzine pamoate 25 mg capsule 25 - 50 mg (1 - 2 x 25 mg) PO Q6H 08/22/24 #30 caps progesterone micronized 100 mg 100 mg PO QHS #30 caps 08/22/24 capsule (Prometrium) Allergies Allergy/AdvReac Type Severity Reaction Status Date / Time droperidol Allergy Intermediate Shakiness Verified 06/12/25 20:05 Review of Systems Status of ROS: Reports: 10 or more systems reviewed and unremarkable except as noted in History and below Narrative: Constitutional: No weight gain or loss. Eyes: No discharge. No vision changes. HENT: No congestion, no sore throat, no ear pain. Cardiovascular: No chest pain, no palpitations. Respiratory: No shortness of breath, no wheezes, no cough. Gastrointestinal: No abdominal pain, no vomiting, no diarrhea. Genitourinary: No dysuria, no hematuria. Musculoskeletal: Normal range of motion. Skin: No rashes, no pruritis. Neurological: No dizziness, weakness, sensory change, speech change. Endo/Heme/Allergies: No bruising or bleeding. No polydipsia. Pysch: no suicidality, no anxiety, no insomnia. All other systems reviewed and are negative. PFSH PFS Surgical History (Updated 05/03/24 @ 12:10 by Emily Mazariegos) History of tonsillectomy (08/11/13) ?Z90.89 - Acquired absence of other organs (ICD-10) History of nevus excision ?Z98.890 - Other specified postprocedural states (ICD-10) ?Z87.2 - Personal history of diseases of the skin and subcutaneous tissue (ICD-10) History of nasal septoplasty (08/11/13) ?Z98.890 - Other specified postprocedural states (ICD-10) History of breast biopsy ?Z98.890 - Other specified postprocedural states (ICD-10) History of 3 sections ?Z98.891 - History of uterine scar from previous surgery (ICD-10) Family History (Updated 05/29/24 @ 11:52 by Jess Mix MD) Mother High blood pressure Thyroid disease High cholesterol Osteoporosis Father Coronary artery disease Hx of CABG Colon cancer, Onset Age: 70 High cholesterol Alcohol dependence Maternal Grandfather Stroke Paternal Grandmother Breast cancer Brother High blood pressure High cholesterol Social History Smoking Status: Never smoker Do you use any of these nicotine containing products: None How often do you have a drink containing alcohol: monthly or less How many standard drinks containing alcohol do you have on a typical day: 1 or 2 How often do you have six or more drinks on one occasion: Never AUDIT-C Alcohol total score: 1 Non-prescribed substance use: denies use service: No Exam Narrative: Exam Narrative: Constitutional: Well-developed, well-nourished, no acute distress. HEENT: Normocephalic, atraumatic. Neck: Normal range of motion. Nontender. Supple. Heart: Regular. No murmurs. Normal rate. Intact distal pulses. Lungs: Clear to auscultation. No chest discomfort. No wheezes, rhonchi, or rales. Abdomen: Normal bowel sounds. Nontender. No rebound tenderness. Genitalia: Deferred. Back: No midline tenderness. Normal range of motion. Extremities: Normal range of motion. No injury. Skin: Intact. No rash. Warm. No erythema or pallor. Neurologic: No altered sensation. No weakness. Alert and oriented. Psychiatric: No suicidality. No anxiety or depression. No insomnia. Nursing notes and vitals signs are reviewed. Const: Vital Signs, click to edit/add: Vital Signs - 24 hr 06/12/25 20:01 Temperature 97.9 F Pulse Rate [Pulse Oximeter] 104 H Respiratory Rate 18 Blood Pressure [[facility]] 145/84 H Pulse Oximetry 99 Oxygen Delivery Me thod Room Air Course Vital Signs Vital signs: Initial Vital Signs Temperature 97.9 F 06/12/25 20:01 Temperature Source Oral 06/12/25 20:01 Pulse Rate 104 H 06/12/25 20:01 Pulse Rhythm Regular 06/12/25 20:01 Respiratory Rate 18 06/12/25 20:01 Blood Pressure 145/84 H 06/12/25 20:01 Blood Pressure Mean 104 06/12/25 20:01 Blood Pressure Position Sitting 06/12/25 20:01 Pulse Oximetry 99 06/12/25 20:01 Oxygen Delivery Method Room Air 06/12/25 20:01 Vital Signs Temperature 97.9 F 06/12/25 20:01 Pulse Rate 104 H 06/12/25 20:01 Respiratory Rate 18 06/12/25 20:01 Blood Pressure 145/84 H 06/12/25 20:01 Pulse Oximetry 99 06/12/25 20:01 Oxygen Delivery Method Room Air 06/12/25 20:01 Temperature 97.9 F 06/12/25 20:01 Pulse Rate 104 H 06/12/25 20:01 Respiratory Rate 18 06/12/25 20:01 Blood Pressure 145/84 H 06/12/25 20:01 Pulse Oximetry 99 06/12/25 20:01 Oxygen Delivery Method Room Air 06/12/25 20:01 Medications Administered Medications: Discontinued Medications Generic Name Dose Route Start Last Admin Trade Name Freq PRN Reason Stop Dose Admin Diphenhydramine HCl 25 mg 06/12/25 20:24 06/12/25 20:54 Diphenhydramine 50 Mg/Ml Inj IVP 06/12/25 20:25 25 mg ONCE ONE Administration Ketamine HCl 20 mg/ Sodium 100.2 mls @ 300.6 mls/hr 06/12/25 21:31 06/12/25 21:45 Chloride IVPB 06/12/25 21:32 300.6 mls/hr ONCE ONE Administration Ketorolac Tromethamine 30 mg 06/12/25 20:24 06/12/25 20:53 Ketorolac 30 Mg/Ml Inj IVP 06/12/25 20:25 30 mg ONCE ONE Administration Ondansetron HCl 4 mg 06/12/25 20:24 06/12/25 20:54 Ondansetron 2 Mg/Ml Inj IVP 06/12/25 20:25 4 mg ONCE ONE Administration MDM - Headache MDM Narrative Medical decision making narrative: This patient comes in headache is described above. She reports fever that she measured at 100.2? F. She arrives here with normal temperature and other normal vital signs. Additionally her exam is normal. She does have some stiffness in her neck when bending her head forward. I did have discussion with her about various causes of headache and if in fact she has a fever it does raise some suspicion for the possibility of meningitis. I did also discuss tools to help diagnosis at these suspicions including a lumbar puncture. The patient did have an IV placed and labs are acquired. Her white count does return in normal range and her lactate is also normal. A CT scan of her head is also obtained and this shows normal findings also. She did receive IV doses of Benadryl, Toradol, and Zofran. She felt that it did bring some minimal relief to her headache. Her lab results are not showing high suspicion for some kind of infectious process. I did revisit with her the possibility of a viral meningitis and in a process of shared decision making she is currently declining any lumbar puncture to further work this up as the treatment is pain relief typically. She did receive an IV dose of ketamine neck is to better attend to her headache symptoms. This did bring some good relief to her headache. She feels okay to return home. I did describe signs and symptoms that would indicate a need for return re-evaluation. The patient did receive [facility] prescription for Toradol and Zofran. Lab Data Labs: Lab Results 06/12/25 Range/Units 20:45 WBC 10.45 (4.50-11.00) K/uL RBC 4.35 (4.00-5.20) m/uL Hgb 13.4 (12.0-16.0) gm/dL Hct 39.6 (33.0-51.0) % MCV 91 (80-100) fL MCH 31 (26-34) pg MCHC 34 (32-36) gm/dL RDW Coeff of [place] 11.8 (11.5-15.5) % Plt Count 257 (140-440) K/uL Neut % (Auto) 79.6 H (42.0-72.0) % Lymph % (Auto) 9.8 L (20-44) % [place] % (Auto) 9.2 (0.0-11.0) % Eos % (Auto) 0.6 (0.0-7.0) % Baso % (Auto) 0.6 (0.0-3.0) % Neut # (Auto) 8.30 H (1.7-7.0) K/uL Lymph # (Auto) 1.00 (0.90-2.90) K/uL [place] # (Auto) 1.00 H (0.00-0.90) K/UL Eos # (Auto) 0.06 (0.00-0.50) K/uL Baso # (Auto) 0.06 (0.00-0.30) K/uL Abs Immat Gran (auto) 0.02 (0.00-0.30) K/uL Imm/Tot Granulo (auto) 0.2 % Sodium 136 (135-149) mmol/L Potassium 3.6 (3.6-5.1) mmol/L Chloride 105 (96-114) mmol/L Carbon Dioxide 25 (20-32) mmol/L Anion Gap 6 L (7-15) mEq/L BUN 9 (7-30) mg/dL Creatinine 0.9 (0.5-1.5) mg/dL Estimated Creat Clear 65.05 Estimated GFR 76 ml/min Glucose 139 H (60-115) mg/dL Lactate 1.0 (0.5-1.9) mmol/L Calcium 9.1 (8.4-10.6) mg/dL C-Reactive Protein 1.9 H (0.5-1.0) mg/dL Imaging Data CT scan - head: Radiologist's impression: No evidence of acute infarction, intracranial hemorrhage, or mass-effect seen. Discharge Plan Discharge Clinical Impression: Migraine Patient Disposition: Home, Self-Care Condition: Stable Additional Instructions: Take medication as needed and directed. Increase activity as tolerated. Follow up with MD return if worsening. Prescriptions: No Action dextroamphetamine-amphetamine 5 mg tablet 1 tab PO BID levothyroxine 75 mcg tablet 75 mcg PO DAILY valacyclovir 1 gram tablet 1,000 mg PO BID estradiol [Estrace] 0.01 % (0.1 mg/gram) cream 0.5 g vaginal 2XW Qty: 42.5 3RF Rx Instructions: Use nightly for 2 weeks, then twice weekly. May apply with finger. progesterone micronized [Prometrium] 100 mg capsule 100 mg PO QHS Qty: 30 12RF estradiol 0.0375 mg/24 hr patch semiweekly 1 patch transdermal 2XW Qty: 8 12RF Rx Instructions: apply 1 patch for 3 days alternating with 1 patch for 4 days each week for 3 wks per 4-wk cycle hydroxyzine pamoate 25 mg capsule 25 - 50 mg PO Q6H Qty: 30 1RF Follow Up/Referrals: Provider,Not a Local [Primary Care Provider, Family Practice] Stand Alone Forms: MyHealth Info Instructions
[2025-06-12 20:52] LABS: Lactate* 1.0 mmol/L (0.5-1.9)
[2025-06-12 20:53] LABS: Hematocrit 39.6 % (33.0-51.0); Hemoglobin* 13.4 gm/dL (12.0-16.0); Immature Granulocytes Abs Auto 0.02 K/uL (0.00-0.30); Immature Granulocytes Pct Auto 0.2 %; Mean Corpuscular HGB Conc 34 gm/dL (32-36); Mean Corpuscular Hemoglobin 31 pg (26-34); Mean Corpuscular Volume 91 fL (80-100); RDW Coefficient of Variation % 11.8 % (11.5-15.5); Red Blood Count 4.35 m/uL (4.00-5.20); White Blood Count* 10.45 K/uL (4.50-11.00)
[2025-06-12] MEDS: ONDANSETRON 2 MG/ML inj 4 MG IVP (20:54)
[2025-06-12 21:07] LABS: Chloride* 105 mmol/L (96-114); Sodium* 136 mmol/L (135-149)
[2025-06-12 21:08] LABS: Potassium* 3.6 mmol/L (3.6-5.1)
[2025-06-12 21:11] LABS: Anion Gap 6 mEq/L (7-15); Blood Urea Nitrogen* 9 mg/dL (7-30); Calcium* 9.1 mg/dL (8.4-10.6); Carbon Dioxide* 25 mmol/L (20-32); Creatinine* 0.9 mg/dL (0.5-1.5); Est. Creatinine Clearance* 65.05; Estimated Glomerular Filt Rate 76 ml/min; Glucose* 139 mg/dL (60-115)
[2025-06-12 21:23] LABS: Lymphocytes Absolute Auto 1.00 K/uL (0.90-2.90); Slide Review Reflex No
[2025-06-12] MEDS: KETAMINE HCL 20 MG in 0.9 % SODIUM CHLORIDE 100 ml 100 ML 300.6 MG IVPB (21:45)
[2025-06-12 22:31] VITALS: O2SAT 95
[2025-06-12 22:38] VITALS: BP 148/70; PULSE 89; RESP 18; TEMP 36.5; O2SAT 95
== END 2025-06-12 22:40 | disposition home or self-care (01) ==
PROVIDERS: Emergency Provider Emergency Medicine Emergency Medical Services
DX: G43.909 Migraine, unspecified, not intractable, without status migrainosus (principal)
CPT/HCPCS: 36415; 70450; 80048; 83605; 85025; 86140; 87040; 94761; 96365; 96375; 99284; J1200; J1885; J2405; J3490